=== PATIENT | female | born 1970 | race Caucasian/White ===

== ENCOUNTER → 2017-04-08 | Outpatient (CLI) | payer MEDICAID, OTHER ==
--- NOTE | 2017-04-09 10:53 | MM ---
Reason for exam: screening (asymptomatic). Last mammogram was performed 1 year and 11 months ago. History: Family history of breast cancer in paternal aunt at age 60. Physical Findings: A clinical breast exam by your physician is recommended on an annual basis and results should be correlated with mammographic findings. MG 3D Screening Mammo W/Cad Bilateral CC and MLO view(s) were taken. Prior study comparison: May 15, 2015, bilateral MG screening mammo w CAD. August 31, 2014, right breast MG diagnostic mammo RT w CAD. The breast tissue is heterogeneously dense. This may lower the sensitivity of mammography. There is no discrete abnormality. No significant changes when compared with prior studies. ASSESSMENT: Negative, BI-RAD 1 RECOMMENDATION: Routine screening mammogram of both breasts in 1 year.
== END | disposition home or self-care (01) ==
LOC: RADMAMWWP 07:06
PROVIDERS: ATTEND Family Medicine
DX: Z12.31 Encounter for screening mammogram for malignant neoplasm of breast (principal)
CPT/HCPCS: 77063; G0202

== ENCOUNTER → 2018-08-13 | Outpatient (CLI) | payer MEDICAID ==
--- NOTE | 2018-08-13 15:35 | XR ---
EXAMINATION TYPE: XR Hip Complete LT DATE OF EXAM: 08/13/2018 CLINICAL HISTORY: Chronic left-sided hip pain. TECHNIQUE: AP and frogleg views of the left hip are obtained. COMPARISON: Bilateral hip x-ray February 14, 2014. FINDINGS: There is no acute fracture/dislocation evident in the left hip. There is mild to minimal l eft axial hip joint space loss. No significant spurring is seen. Occasional scattered pelvic phleboli th is redemonstrated. IMPRESSION: As above.
--- NOTE | 2018-08-13 15:36 | XR ---
EXAMINATION TYPE: XR lumbosacral spine min 4V DATE OF EXAM: 08/13/2018 CLINICAL HISTORY: Chronic low back pain. TECHNIQUE: Frontal, lateral, and oblique of the lumbar spine are obtained. COMPARISON: None FINDINGS: There is somewhat hypoplastic right T12 rib. There are 5 lumbar type vertebral bodies iden tified. The lumbar spine shows satisfactory alignment without evidence of acute fracture or dislocat ion. Vertebral body heights and disk space heights are within normal limits. The oblique images harish ear within normal limits. Cholecystectomy clips and overlying soft tissue are noted. IMPRESSION: Fairly unremarkable study.
== END | disposition home or self-care (01) ==
LOC: RADXRYALE 15:14
PROVIDERS: ATTEND Physician Assistant Medical
DX: M25.552 Pain in left hip (principal); M54.5 Low back pain
CPT/HCPCS: 72110; 73502

== ENCOUNTER 2019-09-09 09:24 | Emergency (ER) | payer MEDICAID ==
[2019-09-09 09:30] VITALS: BP 157/80; PULSE 69; RESP 18; TEMP 97.9
[2019-09-09] MEDS ORDERED: methylPREDNISolone SOD SUCCI 125 MG/2 ML VIAL IM ONE (09:48)
[2019-09-09] MEDS ORDERED: KETOROLAC 30 MG/ML 1 ML VIAL IM STA (09:48)
--- NOTE | 2019-09-09 09:57 | ED ---
General Adult HPI - General Chief complaint: Back Pain/Injury Stated complaint: Back pain Time Seen by Provider: 09/09/19 09:31 Source: patient, RN notes reviewed Mode of arrival: ambulatory Limitations: no limitations - History of Present Illness Initial comments: 48-year-old female presents to the emergency department for a chief complaint of "sciatic pain". Patient states she has had problems with sciatica for quite some time. States she has seen Dr. Marr for this in the past. States he wanted to order an MRI about a year ago but she did not want him to. States that about for the past month she has had some right-sided sciatic pain. States she was stretching today and it worsened. States the pain shoots from lumbar spine down to the lateral aspect of the right thigh. States it is painful to move but feels better when she is up and walking. Denies any bladder or bowel changes. Denies saddle anesthesia. Denies fevers or chills. Denies any weakness of the legs.Patient has no other complaints at this time including shortness of breath, chest pain, abdominal pain, nausea or vomiting, headache, or visual changes. - Related Data Previous Rx's Medication Instructions Recorded predniSONE 50 mg PO DAILY #5 tablet 09/09/19 Allergies Allergy/AdvReac Type Severity Reaction Status Date / Time amoxicillin Allergy Rash/Hives Verified 09/09/19 09:30 Review of Systems ROS Statement: Those systems with pertinent positive or pertinent negative responses have been documented in the HPI. ROS Other: All systems not noted in ROS Statement are negative. Past Medical History Past Medical History: No Reported History History of Any Multi-Drug Resistant Organisms: None Reported Past Surgical History: Appendectomy, Hysterectomy Past Psychological History: No Psychological Hx Reported Smoking Status: Never smoker Past Alcohol Use History: None Reported Past Drug Use History: None Reported General Exam Limitations: no limitations General appearance: alert, in no apparent distress Head exam: Present: atraumatic, normocephalic, normal inspection Eye exam: Present: normal appearance, PERRL, EOMI. Absent: scleral icterus, conjunctival injection, periorbital swelling ENT exam: Present: normal exam, mucous membranes moist Neck exam: Present: normal inspection, full ROM. Absent: tenderness, meningismus, lymphadenopathy Respiratory exam: Present: normal lung sounds bilaterally. Absent: respiratory distress, wheezes, rales, rhonchi, stridor Cardiovascular Exam: Present: regular rate, normal rhythm, normal heart sounds. Absent: systolic murmur, diastolic murmur, rubs, gallop, clicks GI/Abdominal exam: Present: soft, normal bowel sounds. Absent: distended, tenderness, guarding, rebound, rigid Extremities exam: Present: other (DP pulse 2+ in the right lower extremity. Sensation intact. Skin exam is normal throughout the right lower extremity including the right foot. Positive straight leg raise test. Strength is 5 out of 5 in bilateral lower extremities.) Course Vital Signs 09/09/19 09:26 Temperature 97.9 F Pulse Rate 69 Respiratory 18 Rate Blood Pressure 157/80 O2 Sat by Pulse 99 Oximetry Medical Decision Making - Medical Decision Making Patient presents for sciatic pain. She does have a history of sciatica and this feels similar however is on a different site than normal. Radiates down to the right thigh. No red flag symptoms. Physical exam does reveal positive straight leg raise test. Neurovascular status intact in the right lower extremity. Patient was ambulatory from the front entrance to ER bed 1 without difficulty. Patient is somewhat frustrated that we cannot do an MRI of the lumbar spine to the emergency room but his understanding that she needs to follow-up with Dr. Marr for this. She was given IM Solu-Medrol and Toradol. I did offer patient stay to ensure that Toradol is efficacious however patient prefers to go home and she does not want any higher dose pain medications. She will be given a starter pack of Tylenol 3 and a prescription of steroids. He will follow up with Dr. Marr for whom she is already established for this. Patient presented more today for MRI but is understanding of this cannot be performed emergently given intact NV status without red flag symptoms. I discussed return parameters including flexing symptoms and she will return for this. Disposition Clinical Impression: Back pain, Radiculopathy Disposition: HOME SELF-CARE Condition: Good Instructions (If sedation given, give patient instructions): Sciatica (ED), Lower Back Exercises (ED) Additional Instructions: Please take steroids as directed starting tomorrow. Take motrin and tylenol for pain. If pain is severe take tylenol 3. Follow-up with primary care in 1-2 days. Follow-up with orthopedics as well. Return for any worsening symptoms including weakness of the lower extremities, numbness or tingling of the saddle area, changes in bladder or bowel, or fevers. Prescriptions: predniSONE 50 mg PO DAILY #5 tablet Is patient prescribed a controlled substance at d/c from ED?: No Referrals: Senthil Paulson DO [Primary Care Provider] - 1-2 days Kinza Marr DO [Doctor of Osteopathic Medicine] - 1-2 days Time of Disposition: 10:21
[2019-09-09] MEDS ORDERED: ACET/COD 300 MG/30 MG STARTER PACK 6 TAB BTL PO STA ×2 (10:23→10:25)
--- NOTE | 2019-09-16 08:34 | CDI ---
Dear Shawn cash , please do addedum for inj IM Toradol and Solu-medrol given or not there is no documentation in medication detail but given mention in MDM part please do the needfull . thank you. <Electronically signed by Shawn Cash MD> [facility]
== END 2019-09-09 10:37 | disposition home or self-care (01) ==
LOC: EC 09:24
DX: M54.10 Radiculopathy, site unspecified (principal); M54.31 Sciatica, right side; Z88.0 Allergy status to penicillin
CPT/HCPCS: 99283

== ENCOUNTER → 2019-10-27 | Outpatient (CLI) | payer MEDICAID ==
[2019-10-27 10:22] VITALS: BP 122/82; PULSE 70; RESP 16
--- NOTE | 2019-10-27 10:47 | P.PAINCN ---
History of Present Illness - Reason for Consult Consult date: 10/27/19 - History of Present Illness This is a 48-year-old patient referred by Dr. Marr with a chief complaint of chronic pain in low back, left hip and left groin. Low back pain began approximately 10 years ago, she sought treatment approximately 5 years ago, she was referred to physical therapy, she has been doing her stretching exercises since then, with no significant benefit. In August 2019, she was feeding the birds and twisted her back, this resulted in excruciating low back pain radiating to right lower extremity and she sought care in an emergency department, where she was diagnosed with acute right sided L5-S1 disc herniation. At that time, she did have pain primarily in the right lower extremity, however this has since subsided. Today, she has 2 sources of painchronic constant low back pain without radiation and acute, sharp, intermittent left hip pain radiating to left groin. The second pain is intermittent, when it occurs it makes it difficult for her to lift her left leg, it is unpredictable in nature. Patient states that her hip and groin pain is worse than her low back pain. Pain is rated as 7-9/10, better with ice heat and medications, unpredictable aggravating factors. She has sought physical therapy and chiropractic therapy, with no significant benefit. She continues to do low back stretching exercises. Patient has been taking medications from primary care physician including ibuprofen 600 mg twice a day when necessary with some relief. Patient denies adverse drug effects from medications. Patient also denies new-onset weakness, bowel/bladder incontinence, or any other signs or symptoms of cauda equina syndrome. There are no signs of acute intoxication, and no indications of medication diversion or overuse. Patient has not had surgery. Patient has not had injections previously. In addition to above, 13-point review of systems is also negative for chest pain, shortness of breath, changes in vision, changes in hearing, new onset weakness, abdominal pain, diarrhea, extreme fatigue, malaise, fever, skin changes, homicidal or suicidal ideation, or bowel or bladder incontinence. Physical exam: Vital Signs: Reviewed in EMR GENERAL: Well appearing, in no acute distress, obese PSYCH: Mood and affect is appropriate. Awake, alert, and oriented SKIN: Skin color, texture, turgor normal, no rashes or lesions HEENT: Normocephalic, atraumatic. EOM intact CV: No pedal edema RESP: Respirations are unlabored, no audible wheezing GI: Abdomen non-distended MUSCULOSKELETAL: Bilateral lower extremity strength is normal and symmetric. No atrophy or tone abnormalities are noted. Lumbar spine: Straight leg raising in the sitting position is negative for radicular pain. Tenderness to palpation over the lumbar spine and paraspinous muscles bilaterally. Positive for pain with facet loading and back extension/rotation. Buttocks: No pain to palpation over the PSIS, Sai test is negative, FADIR test is negative Extremities: Peripheral joint ROM is full and pain free without obvious instability or laxity in all four extremities. No edema or skin discolorations noted. Gait: Gait is normal NEUR: Bilateral lower extremity coordination and muscle stretch reflexes are physiologic and symmetric. Negative clonus. No loss of sensation is noted. Cranial nerves are grossly intact. Imaging: MRI lumbar spine done on 09/22/2019 at [facility] shows right central disc herniation at L5-S1 with abutment of the descending right S1 nerve root. At L3-4 minimal annular bulge with mild bilateral facet arthropathy, degenerative changes have progressed since prior imaging. No spinal canal stenosis. At L4-5 minimal annular disc bulge. Assessment: 1. Lumbar radicular pain 2. Lumbar spondylosis 3. Obesity Plan: 1. Explanation: Diagnoses, prognoses, and multiple treatment options including but not limited to physical therapy, interventional therapies, medication management and surgery were discussed with the patient and all questions were answered to the patient's satisfaction. 2. Investigations: MRI lumbar spine reviewed 3. Counseling: None today 4. Procedures: Will schedule left paramedian L3-4 lumbar epidural steroid injection to address radicular pain. In the future, she may benefit from lumbar medial branch workup 5. Consultations: None 6. Medications: No changes 7. Disposition: For above-mentioned procedure Past Medical History Past Medical History: Asthma, Pneumonia, Skin Disorder, Thyroid Disorder Additional Past Medical History / Comment(s): loose stools, diverticulitis, sciatica, arthritis, herniated disk, eczema, History of Any Multi-Drug Resistant Organisms: None Reported Past Surgical History: Appendectomy, Cholecystectomy, Hysterectomy Past Anesthesia/Blood Transfusion Reactions: No Reported Reaction Smoking Status: Never smoker - Past Family History Mother Family Medical History: No Reported History Medications and Allergies Home Medications Medication Instructions Recorded Confirmed Type Albuterol Sulfate [Proair Hfa] 1 - 2 puff INHALATION DIRECTED 10/21/19 10/27/19 History PRN Cholestyramine (with Sugar) 4 gm PO DAILY 10/21/19 10/27/19 History [Cholestyramine Packet] Ibuprofen 200 mg PO DIRECTED PRN 10/21/19 10/27/19 History Levothyroxine Sodium [Synthroid] 50 mcg PO DAILY 10/21/19 10/27/19 History Allergies Allergy/AdvReac Type Severity Reaction Status Date / Time amoxicillin Allergy Rash/Hives Verified 10/27/19 10:16 PQRS Measure Charge Sheet Measure #130: Documentation of Current Meds in Medical Chart: Patient's medications documented in chart Measure #226: Tobacco Use: Screen & Cessation Intervention: Pt not a tobacco user Measure #111: Pneumonia Vaccination: Pneumococcal vaccine NOT administered or previously given Measure #47: Advance Care Plan: Advance care planning discussed & documented, pt chose/unable to give Measure #412: Opioid Treatment Agreement: No documentation of signed opioid treatment agreement Measure #408: Opioid Therapy Follow-up Evaluation: Patient had NO f/u eval minimum every 3 months during opioid therapy Measure #317: Preventitive Care & Scrn High Bld Press & F/U: Normal blood pressure, f/u not required Measure #128: Body Mass Index (BMI) Screening & Follow-up: BMI documented ABOVE normal parameters - f/u documented Measure #131: Pain Assessment & Follow-up: Pain positive & plan documented, Follow-up scheduled Measure #431: Unhealthy Alcohol Use Preventative Care & Scrn: Patient not identified as an unhealthy alcohol user PQRS Narrative: Smoking Status Never smoker Pain Intensity [Lower Back] 8 Hx Alcohol Use (MH) No Home Medications: Ambulatory Orders Albuterol Sulfate [Proair Hfa] 1 - 2 puff INHALATION DIRECTED PRN 10/21/19 Cholestyramine (with Sugar) [Cholestyramine Packet] 4 gm PO DAILY 10/21/19 Ibuprofen 200 mg PO DIRECTED PRN 10/21/19 Levothyroxine Sodium [Synthroid] 50 mcg PO DAILY 10/21/19
== END | disposition home or self-care (01) ==
LOC: PNWHC3 09:36
PROVIDERS: ATTEND Anesthesiology
DX: G89.29 Other chronic pain (principal); M47.26 Other spondylosis with radiculopathy, lumbar region; E66.9 Obesity, unspecified; Z68.38 Body mass index [BMI] 38.0-38.9, adult; Z79.899 Other long term (current) drug therapy; Z88.0 Allergy status to penicillin
CPT/HCPCS: 99211

== ENCOUNTER → 2019-11-09 | Day surgery (SDC) | payer MEDICAID ==
[2019-11-05 16:22] VITALS: BMI 38.2
[~2019-11-09] MED LIST: IOPAMIDOL M200 10 ML VIAL ONE; LACTATED RINGERS 1,000 ML IV ONE; LACTATED RINGERS 1,000 ML IV SCH; LIDOCAINE 1% (10MG/ML) FOR IV START INTRADERMA ONE; MIDAZOLAM 2 MG/2 ML VIAL ONE; fentaNYL (PF) 50 MCG/ML 2 ML AMP ONE; methylPREDNISolone ACETATE 40 MG/ML 1 ML VIAL ONE
[2019-11-09 07:34] VITALS: RESP 16; TEMP 97.4
[2019-11-09 09:18] VITALS: BP 120/80; PULSE 60
--- NOTE | 2019-11-09 09:24 | P.PCN ---
Date of Procedure: 11/09/19 Procedure(s) Performed: PREOPERATIVE DIAGNOSIS: 1- Lumbar radiculopathy, Lumbar Degenerative Disc Diseases 2-Lumbar spondylosis with Facet arthropathy without myelopathy POSTOPERATIVE DIAGNOSIS: 1-Lumber Degenerative Disc Diseases 2-Lumbar spondylosis with Facet arthropathy without myelopathy PROCEDURE 1. Lumbar epidural steroid injection under fluoroscopic guidance at the L3-4 level using a left paramedian approach 2. Lumbar epidurogram. ANESTHESIA: Local with 1% lidocaine 3 ml, moderate sedation with intravenous Versed and fentanyl, sedation time 9 minutes Fluoroscopy was used for the procedure and images were saved in the radiology portion of the chart. EBL: Minimal PROCEDURE INDICATION: The patient with low back pain and radiculitis symptoms unresponsive to conservative treatment. Fluoroscopy was used to optimize visualization of the needle placement and to maximize safety. PROCEDURE DESCRIPTION / TECHNIQUE: The patient was seen and identified in the preoperative area. Risks, benefits, complications including but not limited to infections ,bleeding ,allergic reaction to the medications ,nerve damage and incomplete pain releif , and alternatives were discussed with the patient. The patient agreed to proceed with the procedure and signed the consent. IV was started, and vital signs were stable. Patient was taken to the OR and time out was completed. The patient was placed in the prone position on procedure table and a pillow was placed under the abdomen to reduce lumbar lordosis. The lumbosacral area was prepped and draped in the usual sterile fashion. Vitals were closely monitored during the procedure. Conscious sedation was used during the procedure to decrease patients anxiety. Using anterior-posterior fluoroscopy, the L3-4 interlaminar space was identified and the skin over this site was marked and then infiltrated with 1% lidocaine subcutaneously. Subsequently, a 18-gauge 5" Tuohy epidural needle was inserted and advanced toward the epidural space using the loss of resistance technique and guided by AP and lateral/ oblique fluoroscopy. The correct needle position in the epidural space was verified with the injection of 2 mL of the water soluble contrast dye Isovue 200 contrast under live fluoroscopy, observing an excellent epidurogram. Then, after negative aspiration for blood and CSF and in the absence of paresthesias, a 5 ml mixture containing 80 mg of Depo-medrol , 3 ml of preservative free Normal Saline, and 1 ml of preservative free lidocaine 1% solution was injected and a washout epidurogram was seen. Needle was withdrawn intact, skin was cleansed, and bandages were applied. COMPLICATIONS: None DISPOSITION / PLANS: The patient was placed in a supine position and transferred to the recovery area in a stable condition for observation. There was no evidence of lower extremity motor or sensory deficit after the procedure. Patient was discharged from the recovery room after meeting discharge criteria. Home discharge instructions were given to the patient by the staff. The patient will schedule a follow up in the clinic in 2-4 weeks.
--- NOTE | 2019-11-09 11:12 | FL ---
Fluoroscopy History: Pain 5 seconds of fluoroscopic time and 2 films are submitted for therapeutic injection.
== END ==
LOC: ORPAIN 07:26
PROVIDERS: ATTEND Anesthesiology
DX: M51.16 Intervertebral disc disorders with radiculopathy, lumbar region (principal); M47.26 Other spondylosis with radiculopathy, lumbar region; Z88.0 Allergy status to penicillin; Z90.710 Acquired absence of both cervix and uterus
CPT/HCPCS: 62323; J2250; J1030; J3010; Q9966

== ENCOUNTER → 2019-12-07 | Outpatient (CLI) | payer MEDICAID ==
--- NOTE | 2019-12-07 08:23 | XR ---
EXAMINATION TYPE: XR Hip Limited LT DATE OF EXAM: 12/07/2019 COMPARISON: NONE HISTORY: Left hip pain TECHNIQUE: 2 view left hip FINDINGS: There is no evidence for fracture or dislocation. Focal calcification noted adjacent to the greater trochanter. Hip joint space is well-preserved. IMPRESSION: No evidence for acute fracture or dislocation.
== END | disposition home or self-care (01) ==
LOC: RADXRMAIN 08:07
PROVIDERS: ATTEND Anesthesiology
DX: M25.552 Pain in left hip (principal)
CPT/HCPCS: 73501

== ENCOUNTER → 2019-12-07 | Day surgery (SDC) | payer MEDICAID ==
[2019-12-03 14:40] VITALS: BMI 38.2
[~2019-12-07] MED LIST changes: -IOPAMIDOL M200 10 ML VIAL ONE; -LACTATED RINGERS 1,000 ML IV ONE; -LIDOCAINE 1% (10MG/ML) FOR IV START INTRADERMA ONE; -MIDAZOLAM 2 MG/2 ML VIAL ONE; -fentaNYL (PF) 50 MCG/ML 2 ML AMP ONE; -methylPREDNISolone ACETATE 40 MG/ML 1 ML VIAL ONE
[2019-12-07 07:47] VITALS: BP 124/83; PULSE 69; RESP 16; TEMP 98
--- NOTE | 2019-12-07 08:40 | P.PAINPG ---
Subjective Progress Note Date: 12/07/19 This is a 49-year-old patient who presents with a chief complaint of chronic pain in low back, left hip and left groin. She was diagnosed with lumbar radicular pain, lumbar spondylosis. She underwent lumbar epidural steroid injection at L3-4 approximately 1 month ago. Unfortunately, she reports she had no benefit from this procedure whatsoever, in fact feels her low back was slightly irritated after the procedure. Pain is primarily located in the low lumbar region. She also has left groin and hip pain. She presented today to undergo repeat lumbar epidural steroid injection, however on evaluation, given that the procedure did not provide her any relief in the past, we elected to cancel the procedure today. Patient denies new-onset weakness, bowel/bladder incontinence, or any other signs or symptoms of cauda equina syndrome. There are no signs of acute intoxication, and no indications of medication diversion or overuse. In addition to above, 13-point review of systems is also negative for chest pain, shortness of breath, changes in vision, changes in hearing, new onset weakness, abdominal pain, diarrhea, extreme fatigue, malaise, fever, skin changes, homicidal or suicidal ideation, or bowel or bladder incontinence. Physical exam: Vital Signs: Reviewed in EMR GENERAL: Well appearing, in no acute distress, obese PSYCH: Mood and affect is appropriate. Awake, alert, and oriented SKIN: Skin color, texture, turgor normal, no rashes or lesions HEENT: Normocephalic, atraumatic. EOM intact CV: No pedal edema RESP: Respirations are unlabored, no audible wheezing GI: Abdomen non-distended MUSCULOSKELETAL: Bilateral lower extremity strength is normal and symmetric. No atrophy or tone abnormalities are noted. Lumbar spine: Tenderness to palpation over the lumbar spine and paraspinous muscles bilaterally. Positive for pain with facet loading and back exten orly/rotation. Buttocks: No pain to palpation over the PSIS, Sai test is negative, Gaenslen's test negative Extremities: Peripheral joint ROM is full and pain free without obvious instability or laxity in all four extremities. No edema or skin discolorations noted. NEUR: Cranial nerves are grossly intact. Imaging: MRI lumbar spine done on 09/22/2019 at [facility] shows right central disc herniation at L5-S1 with abutment of the descending right S1 nerve root. At L3-4 minimal annular bulge with mild bilateral facet arthropathy, degenerative changes have progressed since prior imaging. No spinal canal stenosis. At L4-5 minimal annular disc bulge. Assessment: 1. Lumbar radicular pain 2. Lumbar spondylosis 3. Obesity Plan: 1. Investigations: MRI lumbar spine reviewed, left hip x-ray ordered today 2. Procedures: Will schedule bilateral lumbar medial branch block at L3, L4, L5 for facets L4-5 and L5S1. In the future, she may also benefit from left hip intra-articular steroid injection. 3. Disposition: For above-mentioned procedure Objective - Vital Signs Vital signs: Vital Signs Temp 98.0 F 12/07/19 07:45 Pulse 69 12/07/19 07:45 Resp 16 12/07/19 07:45 BP 124/83 12/07/19 07:45 Pulse Ox 96 12/07/19 07:45 Intake & Output 12/06/19 12/07/19 12/07/19 18:59 06:59 18:59 Weight 107.2 kg PQRS Measure Charge Sheet PQRS Narrative: Smoking Status Never smoker Blood Pressure [Right Arm 124/83 Sitting] Pain Intensity [Left Lower 7 Back] Pain Scale Used [Left Lower Numeric (1 - 10) Back] Hx Alcohol Use (MH) No Home Medications: Ambulatory Orders Albuterol Sulfate [Proair Hfa] 1 - 2 puff INHALATION DIRECTED PRN 10/21/19 Cholestyramine (with Sugar) [Cholestyramine Packet] 4 gm PO DAILY 10/21/19 Ibuprofen 200 mg PO DIRECTED PRN 10/21/19 Levothyroxine Sodium [Synthroid] 50 mcg PO DAILY 10/21/19 Controlled Substance Measures - Controlled Substance Measures Is patient prescribed a controlled substance at discharge?: No
== END ==
LOC: ORPAIN 07:27
PROVIDERS: ATTEND Anesthesiology
DX: M54.5 Low back pain (principal); Z53.8 Procedure and treatment not carried out for other reasons

== ENCOUNTER → 2019-12-27 | Outpatient (CLI) | payer MEDICAID ==
--- NOTE | 2019-12-29 08:41 | MM ---
Reason for exam: screening (asymptomatic). Last mammogram was performed 2 years and 9 months ago. History: Family history of breast cancer in paternal aunt at age 60. Took hormonal contraceptives for 10 years. Physical Findings: A clinical breast exam by your physician is recommended on an annual basis and results should be correlated with mammographic findings. MG 3D Screening Mammo W/Cad Bilateral CC and MLO view(s) were taken. Prior study comparison: April 08, 2017, bilateral MG 3d screening mammo w/cad. May 15, 2015, bilateral MG screening mammo w CAD. The breast tissue is heterogeneously dense. This may lower the sensitivity of mammography. No significant changes when compared with prior studies. ASSESSMENT: Negative, BI-RAD 1 RECOMMENDATION: Routine screening mammogram of both breasts in 1 year.
== END | disposition home or self-care (01) ==
LOC: RADMAMWWP 13:35
PROVIDERS: ATTEND Family Medicine
DX: Z12.31 Encounter for screening mammogram for malignant neoplasm of breast (principal)
CPT/HCPCS: 77063; 77067

== ENCOUNTER 2019-12-28 11:46 | Day surgery (SDC) | payer MEDICAID ==
[2019-12-21 18:14] VITALS: BMI 39.1
[2019-12-28 12:05] VITALS: TEMP 97
[2019-12-28] MEDS ORDERED: LACTATED RINGERS 1,000 ML IV ONE (12:05)
[2019-12-28] MEDS ORDERED: IOPAMIDOL M200 10 ML VIAL ONE (12:31)
[2019-12-28] MEDS ORDERED: LIDOCAINE 1% INJ 10MG/ML (20 ML MDV) ONE (12:31)
[2019-12-28] MEDS ORDERED: ROPIVACAINE 5MG/ML 20ML VIAL ONE (12:31)
[2019-12-28] MEDS ORDERED: MIDAZOLAM 2 MG/2 ML VIAL ONE (12:31)
[2019-12-28 13:03] VITALS: RESP 16
[2019-12-28] MEDS ORDERED: LACTATED RINGERS 1,000 ML IV SCH (13:06)
--- NOTE | 2019-12-28 13:17 | FL ---
EXAMINATION TYPE: FL guided pain mgmt statistic DATE OF EXAM: 12/28/2019 CLINICAL HISTORY: Low back pain. TECHNIQUE: Fluoroscopy. COMPARISON: None. FINDINGS: Fluoroscopic guidance was provided during pain relief procedure performed by Dr. Pacheco . A total of 18 seconds of fluoroscopic time was utilized during the procedure and two spot images are acquired. Images acquired shows needle localization at several levels in the lower lumbar spine. IMPRESSION: As Above.
[2019-12-28 13:20] VITALS: BP 117/67; PULSE 65
[2019-12-28] MEDS ORDERED: IV FLUID CONTINUATION 1,000 ML IV ONE (13:28)
--- NOTE | 2019-12-28 14:38 | P.PCN ---
Date of Procedure: 12/28/19 Description of Procedure: PREOPERATIVE DIAGNOSIS : Lumbar spondylosis with Facet Arthropathy without myelopathy POSTOPERATIVE DIAGNOSIS: same PROCEDURE: Wrist Diagnostic lumbar medial branch block with fluoroscopy at L3, L4, L5 [bilateral] which covers facets L4-5 and L5-S1 ANESTHESIA: Local anesthetic; moderate IV sedation with Versed mg, sedation time 20 minutes Fluoroscopy was used for the procedure and images were saved in the radiology portion of the chart. Surgeon: Chaka Pacheco MD PROCEDURE INDICATION: Lumbar back pain without radiculopathy, not responsive to conservative management. PROCEDURE DESCRIPTION: the patient was seen and identified in the preop holding area , risks and benefits and possible complications of the procedure and alternatives were discussed with the patient, and the patient agreed to proceed with the procedure and signed the consent . IV was started , vital signs were monitored during the procedure and fluoroscopy was used to maximize the benefit and accuracy of the needle placement, and sedation was given to decrease patient anxiety. Patient was taken to the procedure room and placed in prone position. The lumbar region was prepped using chlorhexidineX-2. Under strict sterile technique using AP fluoroscopy the bilateral sacral ala were identified and using ipsilateral oblique fluoroscopy ,the junction of the transverse process and the superior articulating process of the L4, L5 vertebra which corresponds to the fluoroscopy image of the eye of the Alxe dog for the medial branches were identified. Subsequently, after local infiltration of skin with lidocaine 1% 0.2 mL at each level , 25-gauge 3.5" Quincke-type needle was placed at the junction of the base of the transverse process and the superior articular process at the appropriate level as well as the sacral ala, and the needle was advanced until the periosteum contacted, needle placement confirmed with AP and oblique fluoroscopy, 0.2 mL of Isovue 200 per level was injected which revealed no vascular uptake and after negative aspiration, 1 mL ropivacaine 0.5% was injected at each level and the needle subsequently removed . At the end of the procedure and the needles were removed and a bandage applied after the skin was cleaned. The patient was taken to recovery room in stable condition and monitors in the recovery room for 20-30 minutes and discharged home in stable condition after discharge criteria met and patient will follow up for seizure if patient achieves adequate analgesia with this procedure EBL: Minimal COMPLICATION: None.
== END 2019-12-28 13:33 | disposition home or self-care (01) ==
LOC: ORPAIN 11:46
PROVIDERS: ATTEND Anesthesiology
DX: M47.816 Spondylosis without myelopathy or radiculopathy, lumbar region (principal); Z88.0 Allergy status to penicillin; Z90.710 Acquired absence of both cervix and uterus
CPT/HCPCS: 64493; 64494; J2250; J2001; Q9966; J2795; 99152

== ENCOUNTER 2020-01-13 09:42 | Day surgery (SDC) | payer MEDICAID ==
[2020-01-11 14:49] VITALS: BMI 39.2
[2020-01-13 10:57] VITALS: RESP 16; TEMP 98
[2020-01-13] MEDS ORDERED: ROPIVACAINE 5MG/ML 20ML VIAL ONE (11:12)
[2020-01-13] MEDS ORDERED: MIDAZOLAM 2 MG/2 ML VIAL ONE (11:12)
[2020-01-13] MEDS ORDERED: methylPREDNISolone ACETATE 40 MG/ML 1 ML VIAL ONE (11:12)
[2020-01-13] MEDS ORDERED: fentaNYL (PF) 50 MCG/ML 2 ML AMP ONE (11:12)
--- NOTE | 2020-01-13 11:34 | P.PCN ---
Date of Procedure: 01/13/20 Procedure(s) Performed: PREOPERATIVE DIAGNOSIS : 1- Lumbar spondylosis with Facet Arthropathy without myelopathy . 2- Lumber degenerative disc disease POSTOPERATIVE DIAGNOSIS: 1- Lumbar spondylosis with Facet Arthropathy without myelopathy . 2- Lumber degenerative disc disease PROCEDURE: Diagnostic bilateral L3 , L4 , and L5 medial branch block under fluoroscopy guidance(fluoroscopy images available in the radiology Department ) ( To target the facet joint between L4-5 , and L5-S1 ) ANESTHESIA:, moderate sedation with intravenous Versed 2 mg and Fentanyl 50 mcg. EBL: Minimal COMPLICATION: None PROCEDURE INDICATION: Chronic low back pain secondary to Facet arthropathy unresponsive to conservative treatment. PROCEDURE DESCRIPTION: the patient was seen and identified in the preop holding area , risks and benefits and possible complications of the procedure and alternative were discussed with the patient, and the patient agreed to proceed with the procedure and signed the consent and vital signs monitored during the procedure and fluoroscopy was used to maximize the benefit and accuracy of the needle placement, and sedation was given to decrease patient anxiety, patient was taken to the procedure room and placed in prone position vital signs monitored in the back prepped with chlorhexidine X3 then under strict sterile technique using a right oblique fluoroscopy ,the junction of the transverse process and the superior articulating process of the right L3 , L4 , and L5 vertebra which corresponding to the fluoroscopy image of the eye of the Alxe dog on the block side for the medial branches and subsequently , after local infiltration of skin and subcu tissuies with Ropivacaine 0.5 % , one mL at each level ,then 22-gauge Quincke-type needles , 3 needle was used , each one of them placed at the junction of the base of the transverse process and the superior articular process at the appropriate level, and the needle was advanced until the periosteum contacted, needle placement confirmed with AP oblique and lateral view and after appropriate needle placement confirmed, and after negative aspiration for heme and CSF and there was no paresthesia 1-1/2 mL of Ropivacaine 0.5% mixed with 20 mg Depo-Medrol , then half mL injected at each level after negative aspiration the needle subsequently removed and the same procedure repeated for the left side at left side at L3 , L4 and L5 levels. At the end of the procedure and the needles removed and a bandage applied after the skin was cleaned the cleaning solution patient taken to recovery room in stable condition and monitors in the recovery room for 20-30 minutes and discharged home in stable condition after discharge criteria met and patient will follow up with the pain clinic in 2-4 weeks
[2020-01-13] MEDS ORDERED: IV FLUID CONTINUATION 1,000 ML IV ONE (11:35)
[2020-01-13 11:39] VITALS: PULSE 71
[2020-01-13 11:58] VITALS: BP 131/76
--- NOTE | 2020-01-13 14:47 | FL ---
EXAMINATION TYPE: FL guided pain mgmt statistic DATE OF EXAM: 01/13/2020 FLUOROSCOPY Fluoroscopy time of 10 seconds was used during bilateral facet block at 3 levels. 4 image/s document /s the procedure.
== END 2020-01-13 12:07 | disposition home or self-care (01) ==
LOC: ORPAIN 09:42
PROVIDERS: ATTEND Specialist
DX: G89.29 Other chronic pain (principal); M47.816 Spondylosis without myelopathy or radiculopathy, lumbar region; M51.36 Other intervertebral disc degeneration, lumbar region; Z88.0 Allergy status to penicillin; Z90.710 Acquired absence of both cervix and uterus
CPT/HCPCS: 64493; 64494; J2250; J1030; J3010; J2795; 99152

== ENCOUNTER → 2020-02-07 | Outpatient (CLI) | payer MEDICAID ==
[2020-02-07 13:20] VITALS: BP 128/89; PULSE 72; RESP 18; TEMP 97.9
--- NOTE | 2020-02-07 14:06 | P.PAINPG ---
Subjective Progress Note Date: 02/07/20 This is a follow-up visit for this 14-year-old years old female with a chronic history of severe low back pain she states most with lumbar spondylosis with lumbar facet arthropathy, and lumbar degenerative disc disease, status post diagnostic medial branch block lumbar area at L3, L4, L5 x2 , she reported she had significant improvement of her low back pain after each diagnostic block her pain was 8/10 dropped to 2-3/10 after each block, she denies any motor or sensory deficit she denies any fever or night sweats, and she has some left hip pain, is constant Objective - Vital Signs Vital signs: Vital Signs Temp 97.9 F 02/07/20 13:12 Pulse 72 02/07/20 13:12 Resp 18 02/07/20 13:12 BP 128/89 02/07/20 13:12 Pulse Ox 97 02/07/20 13:12 Intake & Output 02/06/20 02/07/20 02/07/20 18:59 06:59 18:59 Weight 104.326 kg - Exam Physical Examinations : -Constitutiona : Cooperative , not in acute distress . -HEENT : nech : supple , no Lymphadenopathy , normal thyroid size . : eyes : no ptosis , no icterus, no photophobia . - neurologic : Cranial nerve II to XII intact , no focal neurological deffecit . -psychatric : alert , oriented X 3 , appropriate affect , intact judgment and insight . -Lymphatic : no Lymphadenopathy . - musculoskeltal : Lumber spine moter stegnth lower extremities ,thigh and legs 5/5 Right side , 5/5 Left side deep tendon reflexes : normal Knee Jerk , normal ankle Jerk lumber facet Loading Test =positive Right , positive Left Range of motion of the lumbar spine Flexion 30 degrees, extension 10 degrees strait leg raising test = positive at 45 degree Fabere test= positive Right , and positive LT . hip Joint range of motion bilaterally Assessment and Plan Plan: Assessment and plan=1-lumbar spondylosis with lumbar facet arthropathy without myelopathy 2-lumbar degenerative disc disease. Patient had more than 70% improvement of her low back pain after each diagnostic medial branch block She will be good candidate to have RFA of the medial branch lumbar area at L3, L4, L5, bilaterally, In the future if she continued to have left hip pain after the RFA of the medial branch and then we will consider ordering an x- ray of the left hip Time with Patient: Less than 30 PQRS Measure Charge Sheet Measure #130: Documentation of Current Meds in Medical Chart: Patient's medications documented in chart Measure #226: Tobacco Use: Screen & Cessation Intervention: Pt not a tobacco user Measure #111: Pneumonia Vaccination: Pneumococcal vaccine NOT administered or previously given Measure #47: Advance Care Plan: Advance care planning discussed & documented, pt chose/unable to give Measure #412: Opioid Treatment Agreement: No documentation of signed opioid treatment agreement Measure #408: Opioid Therapy Follow-up Evaluation: Patient had NO f/u eval minimum every 3 months during opioid therapy Measure #317: Preventitive Care & Scrn High Bld Press & F/U: Normal blood pressure, f/u not required Measure #128: Body Mass Index (BMI) Screening & Follow-up: BMI documented ABOVE normal parameters - f/u documented Measure #131: Pain Assessment & Follow-up: Pain positive & plan documented, Follow-up scheduled Measure #431: Unhealthy Alcohol Use Preventative Care & Scrn: Patient not identified as an unhealthy alcohol user PQRS Narrative: Smoking Status Never smoker Blood Pressure 128/89 Pain Intensity [Lower Back] 7 Scale Used Numeric (1 - 10) Hx Alcohol Use (MH) No Home Medications: Ambulatory Orders Albuterol Sulfate [Proair Hfa] 1 - 2 puff INHALATION DIRECTED PRN 10/21/19 Cholestyramine (with Sugar) [Cholestyramine Packet] 4 gm PO DAILY 10/21/19 Ibuprofen 200 mg PO Q6H PRN 10/21/19 Levothyroxine Sodium [Synthroid] 50 mcg PO DAILY 10/21/19 Controlled Substance Measures - Controlled Substance Measures Is patient prescribed a controlled substance at discharge?: No
== END | disposition home or self-care (01) ==
LOC: PNWHC3 13:05
PROVIDERS: ATTEND Specialist
DX: G89.29 Other chronic pain (principal); M51.36 Other intervertebral disc degeneration, lumbar region; M47.816 Spondylosis without myelopathy or radiculopathy, lumbar region; Z79.899 Other long term (current) drug therapy
CPT/HCPCS: 99211

== ENCOUNTER 2020-02-29 08:31 | Day surgery (SDC) | payer MEDICAID ==
[2020-02-25 14:26] VITALS: BMI 38.2
[2020-02-29] MEDS ORDERED: LACTATED RINGERS 1,000 ML IV ONE (08:43)
[2020-02-29 08:44] VITALS: TEMP 98
[2020-02-29] MEDS ORDERED: LIDOCAINE 1% (10MG/ML) FOR IV START INTRADERMA ONE (08:44)
[2020-02-29] MEDS ORDERED: methylPREDNISolone ACETATE 40 MG/ML 1 ML VIAL ONE (09:06)
[2020-02-29] MEDS ORDERED: MIDAZOLAM 2 MG/2 ML VIAL ONE (09:06)
[2020-02-29] MEDS ORDERED: ROPIVACAINE 5MG/ML 20ML VIAL ONE (09:06)
[2020-02-29] MEDS ORDERED: fentaNYL (PF) 50 MCG/ML 2 ML AMP ONE (09:06)
--- NOTE | 2020-02-29 09:32 | P.PCN ---
Date of Procedure: 02/29/20 Procedure(s) Performed: PREOPERATIVE DIAGNOSIS: 1-Lumbar Spondylosis with Facet Arthropathy without myelopathy. 2- Lumber degenerative disc disease POSTOPERATIVE DIAGNOSIS: 1- Lumbar Spondylosis with Facet Arthropathy without myelopathy. 2- Lumber degenerative disc disease PROCEDURES : Bilateral Radiofrequency thermocoagulation, L3 , L4 , and L5 medial branch, with fluoroscopic guidance (fluoroscopy images available in the radiology department) ( to denervate the facet joint at L4-5 ,and L5-S1 levels ) ANESTHESIA: Moderate sedation with intravenous versed 2 mg and fentaneyl 100 mcg, and local infiltration with Ropivacaine 0.5 % . EBL: Minimal PROCEDURE INDICATION: The patient with low back pain secondary to lumbar facet arthropathy who had more than 50% relief of her pain with previous diagnostic lumbar medial branch block with bupivacaine. PROCEDURE DESCRIPTION / TECHNIQUE: The patient was seen and identified in the preoperative area. Risks, benefits, complications, including but not limited to risk of infection ,bleeding , allergic reactions to the medications and no complete pain releife , and alternatives were discussed with the patient, the patient agreed to proceed with the procedure and signed the consent. IV was started. Vital signs remained stable throughout the procedure. Patient was taken to the OR and time out was completed. The patient was placed in the prone position on the procedure table. The lumber area was prepped and draped in the usual sterile fashion. . Vital signs were closely monitored during the procedure .IV sedation was used during the procedure to decrease patients anxiety. Using AP and then oblique fluoroscopy, the ``eye of the Alex dog corresponding to the connection between the superior and transverse articular processes of right L3, L4, and L5 were identified, marked, and localized with 1% lidocaine. Subsequently, a 18 mmrye720-br radiofrequency cannula with a 10- mm active tip was advanced guided by fluoroscopy to each of the``eyes of the Alex dog at right L3, L4, and L5. Each site then underwent sensory testing at 50 Hz and 0 to 1 volt and motor testing at 2.5 Hz and 0 to 3 volt with local stimulation, but no radicular symptoms down the legs. Thereafter each sites underwent radiofrequency thermocoagulation at 80 degrees celsius for 90 seconds after injecting 0.5 ml of PF Ropivacaine 1ml, then after the thermocoagulation done , 1 ml of the block solution containing Depo-Medrol 20 mg and 3 ml of Ropivacaine 0.5% was injected at the right L3 , L4 , and L5 , levels after negative aspiration of CSF and blood and with no paresthesias. Cannulas were retracted while injecting lidocaine 1% until the needle is out. The same procedure was repeated at the level of Left L3, L4, and L5 levels. At the end of the procedure, the skin was cleansed and bandages were applied. COMPLICATIONS: No acute complications. DISPOSITION / PLANS: The patient was placed in a supine position and transferred to the recovery area in a stable condition for observation and was discharged from the recovery room after meeting discharge criteria. Home discharge instructions given to the patient by the staff. The patient was reexamined prior to discharge. The patient will schedule a follow up in the clinic in 2-4 weeks.
[2020-02-29] MEDS ORDERED: IV FLUID CONTINUATION 450 ML IV ONE (09:36)
[2020-02-29 09:43] VITALS: PULSE 72
[2020-02-29 09:57] VITALS: BP 101/74; RESP 20
--- NOTE | 2020-02-29 10:09 | FL ---
EXAMINATION TYPE: FL guided pain mgmt statistic DATE OF EXAM: 02/29/2020 FLUOROSCOPY Fluoroscopy time of 15 seconds was used during bilateral lumbar radiofrequency ablation. 6 image/s d ocument/s the procedure.
== END 2020-02-29 10:05 | disposition home or self-care (01) ==
LOC: ORPAIN 08:31
PROVIDERS: ATTEND Specialist
DX: M47.816 Spondylosis without myelopathy or radiculopathy, lumbar region (principal); M51.36 Other intervertebral disc degeneration, lumbar region; Z88.0 Allergy status to penicillin; Z90.710 Acquired absence of both cervix and uterus
CPT/HCPCS: 64635; 64636; J2250; J3010; J1030; J2795; 99152

== ENCOUNTER → 2021-04-14 | Outpatient (CLI) | payer MEDICAID, OTHER | END | disposition home or self-care (01) | LOC: LABWHC1 13:59 | PROVIDERS: ATTEND Emergency Medicine | DX: Z20.822 Contact with and (suspected) exposure to COVID-19 (principal) | CPT/HCPCS: 87635 ==

== ENCOUNTER → 2021-04-15 | Outpatient (CLI) | payer MEDICAID, OTHER | END | disposition home or self-care (01) | LOC: LABWHC1 14:48 | PROVIDERS: ATTEND Emergency Medicine | DX: Z20.822 Contact with and (suspected) exposure to COVID-19 (principal) | CPT/HCPCS: 87635 ==

== ENCOUNTER → 2021-05-03 | Outpatient (CLI) | payer MEDICAID ==
--- NOTE | 2021-05-07 13:50 | MM ---
Reason for exam: screening (asymptomatic). Last mammogram was performed 1 year and 4 months ago. History: Family history of breast cancer in paternal aunt at age 60. Took hormonal contraceptives for 10 years. Physical Findings: A clinical breast exam by your physician is recommended on an annual basis and results should be correlated with mammographic findings. MG 3D Screening Mammo W/Cad Bilateral CC and MLO view(s) were taken. Prior study comparison: December 27, 2019, bilateral MG 3d screening mammo w/cad. April 08, 2017, bilateral MG 3d screening mammo w/cad. There are scattered fibroglandular densities. Finding #1: There are two adjacent, obscured round masses measuring 8mm and 6mm located 6 cm from the nipple in the upper outer quadrant, middle position of the left breast. Finding #2: There are typically benign round calcifications in both breasts. There is a chronic nodularity in the left breast. New finding since December 27, 2019 and April 08, 2017. ASSESSMENT: Incomplete: need additional imaging evaluation, BI-RAD 0 RECOMMENDATION: Ultrasound of the left breast. [facility] will attempt to contact patient to return for ultrasound.
== END | disposition home or self-care (01) ==
LOC: RADMAMWWP 13:54
PROVIDERS: ATTEND Family Medicine
DX: Z12.31 Encounter for screening mammogram for malignant neoplasm of breast (principal); Z80.3 Family history of malignant neoplasm of breast
CPT/HCPCS: 77063; 77067

== ENCOUNTER → 2022-02-11 | Outpatient (CLI) | payer MEDICAID ==
--- NOTE | 2022-02-11 12:54 | XR ---
EXAMINATION TYPE: XR lumbosacral spine min 4V DATE OF EXAM: 02/11/2022 12:06 PM INDICATION: Patient age:Female; 51 years old; Reason for study: [id number] LBP; [facility]. COMPARISON: Spine at 08/13/2018 TECHNIQUE: Frontal, lateral , bilateral oblique and coned in L5-S1 lateral views of the spine. FINDINGS: No evidence of any acute osseous pathology. No evidence of loss of vertebral body height i s seen. There is straightening of the alignment of the lumbar vertebral bodies. Mild scattered disc s pace narrowing. Multilevel marginal osteophyte formation throughout the visualized spine. There is fa cet joint arthropathy throughout the spine. Scattered at least mild neural foraminal stenosis. Right upper quadrant cholecystectomy clips. IMPRESSION: 1. No acute fracture. 2. Mild multilevel disc degeneration.
== END | disposition home or self-care (01) ==
LOC: RADXRYALE 11:54
PROVIDERS: ATTEND Physician Assistant Medical
DX: M51.37 Other intervertebral disc degeneration, lumbosacral region (principal)
CPT/HCPCS: 72110

== ENCOUNTER → 2022-11-05 | Outpatient (CLI) | payer MEDICAID ==
--- NOTE | 2022-11-06 08:41 | MM ---
Reason for Exam: Screening (asymptomatic). Last mammogram was performed 1 year(s) and 6 month(s) ago. Patient History: Menarche at age 13. First Full-Term at age 27. Hysterectomy at age 33. Patient used Hormonal Contraceptives for 10 years. Paternal aunt had breast cancer, age 60. Risk Values: Sharyn 5 year model risk: 1.2%. NCI Lifetime model risk: 9.6%. Prior Study Comparison: 04/08/2017 Bilateral Screening Mammogram, [facility]. 12/27/2019 Bilateral Screening Mammogram, [facility]. 05/03/2021 Bilateral Screening Mammogram, [facility]. Tissue Density: There are scattered fibroglandular densities. Findings: Analyzed By CAD. There is no suspicious group of microcalcifications within either breast. No new suspicious mass within the right breast. Chronic nodularity within the right breast. Region of nodular focal asymmetries within the anterior aspect centrally of the left breast. Overall Assessment: Incomplete: need additional imaging evaluation, BI-RAD 0 Management: Diagnostic Mammogram of the left breast. A clinical breast exam by your physician is recommended on an annual basis and results should be correlated with mammographic findings. [facility] will attempt to contact patient to return for supplemental views and ultrasound if indicated. Note on Sharyn scores and lifetime risk: 1. A Sharyn score greater than 3% is considered moderate risk. If this is the case, consider specialist referral to assess eligibility for a risk reducing agent. If overall lifetime risk for the development of breast cancer is 20% or higher, the patient may qualify for future screening with alternating mammogram and breast MRI. Electronically signed and approved by: Soto Monroy D.O.
== END | disposition home or self-care (01) ==
LOC: RADMAMWWP 13:08
PROVIDERS: ATTEND Family Medicine
DX: Z12.31 Encounter for screening mammogram for malignant neoplasm of breast (principal); Z80.3 Family history of malignant neoplasm of breast
CPT/HCPCS: 77063; 77067

== ENCOUNTER → 2022-11-18 | Outpatient (CLI) | payer MEDICAID ==
--- NOTE | 2022-11-18 14:04 | MM ---
Reason for Exam: Additional evaluation requested from abnormal screening. Last screening mammogram was performed less than 1 month ago. Patient History: Menarche at age 13. First Full-Term at age 27. Hysterectomy at age 33. Postmenopausal. Patient used Hormonal Contraceptives for 10 years. Paternal aunt had breast cancer, age 60. Risk Values: Sharyn 5 year model risk: 1.2%. NCI Lifetime model risk: 9.6%. Prior Study Comparison: 12/27/2019 Bilateral Screening Mammogram, [facility]. 05/03/2021 Bilateral Screening Mammogram, [facility]. 11/05/2022 Bilateral MG 3D screening mammo w/cad, [facility]. Tissue Density: Left: The breast tissue is heterogeneously dense. This may lower the sensitivity of mammography. Findings: Analyzed By CAD. Noted 2 cm from the nipple there is a 6.6 mm well-circumscribed mass at the approximate 12:00 position. Ultrasound is recommended. Overall Assessment: Incomplete: need additional imaging evaluation, BI-RAD 0 Management: Diagnostic Breast Ultrasound of the left breast. . Results were given to the patient verbally at the time of exam. Patient should continue monthly self-breast exams. A clinical breast exam by your physician is recommended on an annual basis. This exam should not preclude additional follow-up of suspicious palpable abnormalities. Note on Sharyn scores and lifetime risk: 1. A Sharyn score greater than 3% is considered moderate risk. If this is the case, consider specialist referral to assess eligibility for a risk reducing agent. 2. If overall lifetime risk for the development of breast cancer is 20% or higher, the patient may qualify for future screening with alternating mammogram and breast MRI. Electronically signed and approved by: Jason Tucker M.D. Radiologis
--- NOTE | 2022-11-18 14:53 | USB ---
Reason for Exam: Additional evaluation requested from abnormal screening. Patient History: Menarche at age 13. First Full-Term at age 27. Hysterectomy at age 33. Postmenopausal. Patient used Hormonal Contraceptives for 10 years. Paternal aunt had breast cancer, age 60. Risk Values: Sharyn 5 year model risk: 1.2%. NCI Lifetime model risk: 9.6%. Technique: Method: Targeted. Prior Study Comparison: 12/27/2019 Bilateral Screening Mammogram, [facility]. 05/03/2021 Bilateral Screening Mammogram, [facility]. 11/05/2022 Bilateral MG 3D screening mammo w/cad, [facility]. Findings: The upper section of the breast of the left breast and the retroareolar of the left breast were scanned. The left 12:00 position is a simple appearing cystic lesion 2 cm from the nipple measuring 9 x 4 mm. No solid masses identified. Overall Assessment: Benign, BI-RAD 2 Management: Screening Mammogram of both breasts in 1 year. A clinical breast exam by your physician is recommended on an annual basis and results should be correlated with mammographic findings. This exam should not preclude additional follow-up of suspicious palpable abnormalities. Results were given to the patient verbally at the time of exam. Electronically signed and approved by: Jason Tucker M.D. Radiologis
== END | disposition home or self-care (01) ==
LOC: RADMAMWWP 13:31
PROVIDERS: ATTEND Family Medicine
DX: R92.8 Other abnormal and inconclusive findings on diagnostic imaging of breast (principal); Z78.0 Asymptomatic menopausal state; Z80.3 Family history of malignant neoplasm of breast
CPT/HCPCS: 77061; 77065

== ENCOUNTER 2022-12-13 13:41 | Day surgery (SDC) | payer MEDICAID ==
[2022-12-09 10:29] VITALS: BMI 35.8
[~2022-12-13 13:41] MED LIST changes: +LIDOCAINE 1% (10MG/ML) FOR IV START INTRADERMA PRN; +ONDANSETRON 4 MG/2 ML VIAL IVP PRN
[2022-12-13 14:56] VITALS: RESP 16; TEMP 97.5
[2022-12-13] MEDS ORDERED: PROPOFOL 10 MG/ML 20 ML VIAL IV ONE (15:00)
--- NOTE | 2022-12-13 15:22 | P.PCN ---
Date of Procedure: 12/13/22 Procedure(s) Performed: BRIEF HISTORY: Patient is a 52-year-old pleasant white white female scheduled for an elective colonoscopy as a part of screening for colon cancer. PROCEDURE PERFORMED: Colonoscopy. PREOPERATIVE DIAGNOSIS: Screening for colon cancer. IV sedation per Anesthesia. PROCEDURE: After informed consent was obtained, the patient, was brought into the endoscopy unit. IV sedation was administered by Anesthesia under continuous monitoring. Digital rectal examination was normal. Initially the Olympus CF-160 flexible video colonoscope was then inserted in the rectum, gradually advanced into the cecum without any difficulty. Careful examination was performed as the scope was gradually being withdrawn. Ileocecal valve and the appendiceal orifice were visualized and appeared normal. Prep was excellent. Mucosa of the cecum, ascending colon, transverse colon, descending colon, sigmoid colon, and rectum appeared normal. Scattered sigmoid diverticula cyst. Retroflexion was performed in the rectum and no lesions were seen. The patient tolerated the procedure well. IMPRESSION: Normal-appearing colon from rectum to cecum no evidence of colorectal neoplasia. Scattered sigmoidal diagnosis. RECOMMENDATIONS: Findings of this examination were discussed with the patient as well as a family. She was advised to have a repeat screening colonoscopy in 10 years..
[2022-12-13 15:50] VITALS: BP 120/81; PULSE 74
== END 2022-12-13 16:03 | disposition home or self-care (01) ==
LOC: ORWHC2ENDO 13:41
PROVIDERS: ATTEND Internal Medicine Gastroenterology
DX: Z12.11 Encounter for screening for malignant neoplasm of colon (principal); K57.30 Diverticulosis of large intestine without perforation or abscess without bleeding; I25.10 Atherosclerotic heart disease of native coronary artery without angina pectoris; J45.909 Unspecified asthma, uncomplicated; E03.9 Hypothyroidism, unspecified; Z79.899 Other long term (current) drug therapy; Z79.890 Hormone replacement therapy
CPT/HCPCS: 45378; J2704

== ENCOUNTER → 2023-07-16 | Outpatient (CLI) | payer MEDICAID ==
--- NOTE | 2023-07-20 16:16 | MR ---
EXAMINATION TYPE: MR lumbar spine wo con DATE OF EXAM: 07/16/2023 COMPARISON: 11/30/2014 HISTORY: 52-year-old female low back pain into the left leg, M62.81 MUSCLE WEAKNESS (GENERALIZED) TECHNIQUE: Multiplanar, multisequence images of the lumbar spine were acquired without IV contrast. FINDINGS: Low marrow signal intensity with some heterogeneity suggesting prominent red marrow hyperplasia, unch anged from prior. There is mild degenerative disc disease throughout with a perirenal mild intervertebral disc desiccat ion and mild disc bulging which has progressed. There is facet arthropathy mid to lower lumbar spine which has progressed particularly at L3-L4 with small joint effusions are present. There is also some thickening of the ligamentum flavum here with a new 7 mm cyst either arising from the right facet joint or the ligamentum flavum projecting towards the right lateral recess and abutting the cauda equina nerve roots, axial image 12 and sagittal image 10. Conus medullaris is normal. No large focal disc herniation or significant spinal canal stenosis. On the left, no significant neural foraminal stenosis. On the right, no significant neural foraminal stenosis. No prevertebral or paravertebral soft tissue abnormality. IMPRESSION: 1. Some early intervertebral disc desiccation and mild disc bulging. Changes have progressed from 201 5. However, no focal disc herniation or significant spinal canal stenosis. 2. Facet arthropathy has progressed in the mid and lower lumbar spine especially L3-L4 where moderate joint effusions are also present. 3. Either a 7 mm right-sided synovial cyst of the L3-L4 facet joint or of the mildly thickened ligame ntum flavum. This projects anteriorly towards the spinal canal into the right lateral recess abutting the cauda equina nerve roots here. 4. No significant neural foraminal stenosis.
== END | disposition home or self-care (01) ==
LOC: RADMRIMAIN 11:07
PROVIDERS: ATTEND Orthopaedic Surgery
DX: M47.816 Spondylosis without myelopathy or radiculopathy, lumbar region (principal); M51.26 Other intervertebral disc displacement, lumbar region; M71.38 Other bursal cyst, other site; M25.48 Effusion, other site; M62.81 Muscle weakness (generalized)
CPT/HCPCS: 72148

== ENCOUNTER → 2023-08-20 | Outpatient (CLI) | payer MEDICAID | END | disposition home or self-care (01) | LOC: LABPAT 14:31 | PROVIDERS: ATTEND Orthopaedic Surgery | DX: Z01.812 Encounter for preprocedural laboratory examination (principal); M43.16 Spondylolisthesis, lumbar region; M48.061 Spinal stenosis, lumbar region without neurogenic claudication; M47.26 Other spondylosis with radiculopathy, lumbar region | CPT/HCPCS: 86850; 86900; 86901; 87070 ==

== ENCOUNTER 2023-08-26 07:30 | Inpatient (IN) | payer MEDICAID ==
[2023-08-21 10:51] VITALS: BMI 38.7
--- NOTE | 2023-08-26 06:55 | P.HPOR ---
History of Present Illness H&P Date: 08/20/23 .D:Date: 08/20/23 : 01:54pm .T:Title: [facility] [place] HISTORY AND PHYSICAL Age: 52 year Height: 5'5" Weight: 235 lbs BMI: 39.11 kg/m2 Occupation: Graphic Editor @ [employer] VAS: 6 IMPRESSION: It was my pleasure to have seen and examined Brittany. I reviewed the patient's clinical syndrome, physical findings, and imaging studies during the appointment today. It is my impression that the patient has a diagnosis of. 1. Grade I spondylolisthesis of L3 on L4, unstable 2. Right-sided facet cyst 3. Low back pain Spine Surgery Risk Review Ms. Dee is presenting for evaluation of low back and bilateral lower extrem ity pain, bilateral lower extremity numbness and tingling. It was my pleasure to have seen and examined Ms. Dee. In our visit today we have had a chance to go over subjective complaints, physical examination findings and treatments including the natural course history without intervention and various interventional options. The patients imaging demonstrates: MRI of the lumbar spine completed at [facility] on 07/23/2023: Images reviewed with pt. large right-sided facet cyst at L3-L4 causing mass effect on the thecal sac which causes central stenosis which is moderate to severe. This also encroaches on the foramen at this level causing moderate foraminal stenosis on the right- hand side. There are very boggy and fluid-filled facets at the L3-L4 level as well. Suggesting instability.no acute fracture or lesion noted XRAY Date: 07/09/2023 Location: [facility] Region: Lumbar Views: MV (AP, Lateral, Flexion, & Extension with AP pelvis) - Re-reviewed with the patient today Images reviewed with pt. L5-S1 spondylosis with spondylolysis. No significant listhesis. DDD noted with disc collapse and facet arthrosis. L4-5 spondylosis with stenosis foraminally that is mild. No fracture or lesions noted. L3-4 Grade I spondylolisthesis that is mobile on F/E films b/l foraminal stenosis, moderate, bony, need MRI to visualize more as well as central stenosis suspected based on exam. AP pelvis shows congruent level pelvis w/o fracture. On physical exam, Ms. Dee demonstrates: A continued ache-like, tightness throughout the low back that radiates down into the left hip and posterior aspect of the bilateral thigh. The patient reports that her bilateral lower extremity pain is associated with numbness and tingling. She states her symptoms worsen after prolonged walking or standing. The patient states that her low back pain is minimal when sitting. The patient states her symptoms have been worsening over the last 2 to 3 months. She reports experiencing mild sleep disturbances related to her ongoing pain and associated symptoms. I have explained to the patient that as their condition progresses it will cause further neurological deficits and eventual paralysis. Based on the patients imaging, physical exam, and the rapid progression and disabling nature of their symptoms, at this time I recommend surgery in the form of a: Stage I: L3-4 lateral decompression and fusion Stage II: L3-4 posterolateral stabilization and fusion. I discussed the risk and benefits of this procedure at length with Ms. Dee. The patient agreed to considered pursuing the procedure above mentioned. Prior to surgery, she should follow up with her PCP (Cardio, ID, IM etc) for clearance. Questions were invited and answered, and the patient wishes to proceed as outlined below. Currently, I am recommendin.Stage I: L3-4 lateral decompression and fusion Stage II: L3-4 posterolateral stabilization and fusion 2.Review of surgical risks and benefits as well as an educational packet on the proposed surgical procedure. Risks: All surgical procedures come with inherent risks, including those related to positioning, anesthesia, intraoperative findings, and postoperative complications. It is important to understand that surgery does not come with any guarantee of a successful outcome as complications and adverse events are always possible. The patient was given a handout in office today discussing the surgical procedure and risks associated with the intervention, both of which were discussed with the patient. These risks include but are not limited to the following: * Experiencing same, different or even worse symptoms in back, neck, arms, or legs compared to before surgery. Requiring further surgery or other forms of treatment presently or at some time in the future at same or other levels of the intended spine surgery. On an extreme but fortunately relatively rare basis severe complication such as blindness, stroke, heart attack, temporary and/or permanent nerve injury, pa ralysis, coma, or may occur, sometimes without known explanation. Surgical complications may include but are not limited to risk of infection, fluid accumulation in the surgical dissection site, including a seroma or hematoma, that requires additional surgery, wound drainage, bleeding, new numbness or weakness, vision changes/loss, spinal fluid leakage, non-healing and/or infected incision, headaches, difficulty or inability to swallow, hoarseness, hemopneumothorax, pneumothorax, impotence, retrograde ejaculation, vaginal dryness; injury to nerves, spinal cord, blood vessels, lymphatics or other vital organs (i.e., bowel injury, injury to the great vessels); heterotopic bone formation; complications related to the hardware such as screws, rods, cages including misplaced hardware, device failure, instrumentation at the wrong spine level, hardware fracture/breakage, or hardware loosening; vertebral failure of the spinal column above or below the newly placed hardware; retained surgical instrumentations or devices and the need for further surgery. * Medical risks of the planned spine surgery include but are not limited to generalized Infections to the whole body or local areas outside of the surgical site (sepsis), heart attack, bleeding, anaphylaxis, meningitis, seizure, epilepsy, hearing loss, burn saldana, laceration of the head or other areas of the body, bruising, hypersensitivity of the skin, bladder over distension; allergic reaction; shoulder injury related to positioning; fat, blood and air clots to other areas of the body like heart, lungs, brain; failure of internal organs such as lungs, kidneys, liver and excessive bleeding. If blood transfusions are necessary, note that transfusions may cause intolerance reactions such as anaphylaxis or other complex reactions. Despite best efforts, the results of spine surgery might not heal in terms of bone, soft tissues such as skin, fascia, ligaments, and joints. Additionally, in order to achieve best possible results, spine surgery may be carried out beyond the initially planned levels and involve decompression, fusion including insertion of hardware at levels other than the original intended area of arsen gical interest change some portions of the procedure in order to ensure the best possible outcomes. With spine surgery and spinal fusion, there are different off label uses of instrumentation (devices, implants and hardware) as well as biological substances (bone morphogenic proteins, demineralized bone matrix) as well as using extra bone from allograft sources (i.e. cadaver bone) or autograft (iliac crest bone, ribs, or the spine itself). The patient has been given information about these practices and their inherent risks and benefits. [facility] is an educational center that serves as a training facility for neurosurgical and orthopedic [employer] and Nursing students. Physician assistants are medically trained surgical providers who function in the outpatient, inpatient, and operating room setting under the direct supervision of the attending surgeon. [facility] has multiple operating rooms with single and overlapping rooms running daily. They currently function under the required guidelines as produced by the [facility] Finance Committee with regards to the overlapping rooms and will continue to comply with changes to this policy as they occur. The requirements include and are complied with as follows: (1) the critical portions of the overlapping rooms will not occur at the same time, (2) the attending physician will be physically present during the critical portions of the procedure and immediately available during the entire case, and (3) a back-up attending is designated should the primary attending not be immediately available. The patient has had a chance to review all the listed information, has been given print outs detailing this information, and has had all his/her questions answered to their satisfaction. It was my pleasure to have seen and examined Ms. Dee. In our visit today we have had a chance to go over my understanding of our patient's current condition, the natural course history without intervention and various interventional options. Questions were invited and answered, and the patient wishes to proceed as outlined above. I have seen and examined the patient for 25 minutes and we have spent more than 50% of the time in repeat and detailed counseling about the patient's condition, its natural course history with out and as much as can be predicted with surgery and re-review of various surgical treatment options. In conclusion, Ms. Dee requested we proceed with the above suggested surgery and are willing to accept risks and limitations of the suggested surgery as nature of the disease process and our best attempts at treatment for the condition. Thank you again for allowing us to be part of your patient's care. Please don't hesitate to contact me if you have any further questions. FOLLOW UP: Post Operation PATIENT EDUCATION: Medications Reviewed: YES In our visit today Ms. Dee and I have had a chance to go over my understanding of the patient's current condition, the natural course history without intervention and various interventional options. Questions were invited and answered, and the patient wishes to proceed as outlined above. I will be sure to keep you updated after Ms. Dee returns here for further follow-up. Thank you again for your referral. Please do not hesitate to contact me if you have any further questions. Signed and authenticated by: Jordan Ramesh [facility] [address] [place] [place] [address] This message is confidential, intended only for the named recipient(s) and may contain information that is privileged or exempt from disclosure under applicable law. If you are not the intended recipient(s), you are notified that the dissemination, distribution or copying of this information is strictly prohibited. If you received this message in error, please notify the sender then delete this message. # SIGNED BY Jordan Perez (GOO)08/24/2023 01:33PM Past Medical History Past Medical History: Asthma, Musculoskeletal Disorder, Osteoarthritis (OA), Pneumonia, Skin Disorder, Thyroid Disorder Additional Past Medical History / Comment(s): Diverticulitis, sciatica, herniate d disc, eczema. History of Any Multi-Drug Resistant Organisms: None Reported Past Surgical History: Appendectomy, Cholecystectomy, Hysterectomy Additional Past Surgical History / Comment(s): PAIN CLINIC PROCEDURES. Past Anesthesia/Blood Transfusion Reactions: No Reported Reaction Smoking Status: Never smoker - Past Family History Mother Family Medical History: No Reported History Medications and Allergies Home Medications Medication Instructions Recorded Confirmed Type Cholestyramine (with Sugar) 4 gm PO QAM 10/21/19 08/21/23 History [Cholestyramine Packet] Levothyroxine Sodium [Synthroid] 50 mcg PO QAM 10/21/19 08/21/23 History Escitalopram [Lexapro] 10 mg PO QAM 08/21/23 08/21/23 History Allergies Allergy/AdvReac Type Severity Reaction Status Date / Time amoxicillin Allergy Rash/Hives Verified 08/21/23 10:22 Physical Examination Osteopathic Statement: *. No significant issues noted on an osteopathic structural exam other than those noted in the History and Physical/Consult.
[~2023-08-26 07:30] MED LIST changes: -LACTATED RINGERS 1,000 ML IV SCH; +MIDAZOLAM 2 MG/2 ML VIAL IV PRN; -ONDANSETRON 4 MG/2 ML VIAL IVP PRN; +TRANEXAMIC 1,000 MG/100ML-NACL 1,000 MG in SALINE 1 100ML.BAG IVPB PRN
[2023-08-26] MEDS: LACTATED RINGERS 1,000 ML IV SCH (08:55)
[2023-08-26] MEDS: GABAPENTIN 300 MG CAP PO PRN (09:06)
[2023-08-26] MEDS: ACETAMINOPHEN TAB 500 MG TAB PO PRN (09:06)
[2023-08-26 09:26] LABS: Glucose,Whole Blood 84 mg/dL (70-110)
[2023-08-26] MEDS: ONDANSETRON 4 MG/2 ML VIAL IVP ONE (09:26)
[2023-08-26] MEDS ORDERED: PROPOFOL 10 MG/ML 20 ML VIAL IV ONE (11:39)
[2023-08-26] MEDS ORDERED: MIDAZOLAM 2 MG/2 ML VIAL ONE (11:39)
[2023-08-26] MEDS ORDERED: KETAMINE HCL IN 0.9 % NACL 50 MG/5 ML SYRINGE ONE (11:39)
[2023-08-26] MEDS ORDERED: fentaNYL (PF) 50 MCG/ML 2 ML AMP ONE (11:39)
[2023-08-26] MEDS ORDERED: LIDOCAINE 1% INJ 10MG/ML (20 ML MDV) ONE (11:39)
[2023-08-26] MEDS ORDERED: TRANEXAMIC 1,000 MG/100ML-NACL PREMIX BAG ONE (11:39)
[2023-08-26] MEDS ORDERED: HYDROmorphone (PF) 1 MG/ML ONE (11:39)
[2023-08-26] MEDS ORDERED: ePHEDrine 50 MG/ML 1 ML VIAL ONE (11:39)
[2023-08-26] MEDS ORDERED: SUCCINYLCHOLINE CHLORIDE 200 MG/10 ML VIAL IV ONE (11:39)
[2023-08-26 11:42] LABS: INR 0.9 (<1.2); Partial Thromboplastin Time 25.8 sec (22.0-30.0); Prothrombin Time 10.1 sec (10.0-12.5)
[2023-08-26] MEDS: BUPIVACAINE (PF) 0.5% 30 ML VIAL SQ ONE (12:20)
[2023-08-26] MEDS: LIDOCAINE 2%-EPI 1:100,000 20 ML VIAL SQ ONE (12:20)
[2023-08-26] MEDS: VANCOMYCIN 1,000 MG VIAL MISCELLANE ONE ×2 (12:26→14:58)
[2023-08-26] MEDS: THROMBIN (BOVINE) 5,000 UNIT VIAL MISCELLANE ONE ×2 (12:26→14:58)
--- NOTE | 2023-08-26 15:23 | P.OP ---
Date of Procedure: 08/26/23 Preoperative Diagnosis: 1. 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 L3-4 STENOSIS, FACET CYST RIGHT 3. RLE WEAKNESS WITH RADICULOPATHY 4. LOW BACK PAIN Postoperative Diagnosis: 1. 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 L3-4 STENOSIS, FACET CYST RIGHT 3. RLE WEAKNESS WITH RADICULOPATHY 4. LOW BACK PAIN Procedure(s) Performed: STAGE I: 1. L3-4 LATERAL INTERBODY FUSION 2. INSERTION OF BIOMECHANICAL DEVICE L3-4 STAGE II: 1. L3-4 POSTERIOLATERAL STABILIZED FUSION 2. L3-4 SEGMENTAL INSTRUMENTATION 3. L3-4 MN LAMINOFORAMINOTOMY 4. USE OF [email or web address] NAVIGATION FOR SCREW PLACEMENT Implants: -GLOBUS RISE L 18MM 10-17MM 8 DEG CAGE -ARTHROCELL, AUTOGRAFT, CONTOUR -KIM EVEREST SCREW AND AURA SYSTEM -AUTOGRAFT, MAGNATOS Anesthesia: GETA Surgeon: Jordan Perez Corduroy Cutter Operator #1: Raciel Nair (was present and assisted with all aspects of the case from position to closure. ) Estimated Blood Loss (ml): 200 IV fluids (ml): 1,200 Urine output (ml): 350 Pathology: other (Right L3-4 facet cyst.) Condition: stable Disposition: PACU Indications for Procedure: Ms. Dee is presenting for evaluation of low back and bilateral lower extremity pain, bilateral lower extremity numbness and tingling. It was my pleasure to have seen and examined Ms. Dee. In our visit today we have had a chance to go over subjective complaints, physical examination findings and treatments including the natural course history without intervention and various interventional options. The patients jero daigle demonstrates: MRI of the lumbar spine completed at [facility] on 07/23/2023: Images reviewed with pt. large right-sided facet cyst at L3-L4 causing mass effect on the thecal sac which causes central stenosis which is moderate to severe. This also encroaches on the foramen at this level causing moderate foraminal stenosis on the right- hand side. There are very boggy and fluid-filled facets at the L3-L4 level as well. Suggesting instability.no acute fracture or lesion noted XRAY Date: 07/09/2023 Location: [facility] Region: Lumbar Views: MV (AP, Lateral, Flexion, & Extension with AP pelvis) - Re-reviewed with the patient today Images reviewed with pt. L5-S1 spondylosis with spondylolysis. No significant listhesis. DDD noted with disc collapse and facet arthrosis. L4-5 spondylosis with stenosis foraminally that is mild. No fracture or lesions noted. L3-4 Grade I spondylolisthesis that is mobile on F/E films b/l foraminal stenosis, moderate, bony, need MRI to visualize more as well as central stenosis suspected based on exam. AP pelvis shows congruent level pelvis w/o fracture. On physical exam, Ms. Dee demonstrates: A continued ache-like, tightness throughout the low back that radiates down into the left hip and posterior aspect of the bilateral thigh. The patient reports that her bilateral lower extremity pain is associated with numbness and tingling. She states her symptoms worsen after prolonged walking or standing. The patient states that her low back pain is minimal when sitting. The patient states her symptoms have been worsening over the last 2 to 3 months. She reports experiencing mild sleep disturbances related to her ongoing pain and associated symptoms. I have explained to the patient that as their condition progresses it will cause further neurological deficits and eventual paralysis. Based on the patients imaging, physical exam, and the rapid progression and disabling nature of their symptoms, at this time I recommend surgery in the form of a: Stage I: L3-4 lateral decompression and fusion Stage II: L3-4 posterolateral stabilization and fusion. I discussed the risk and benefits of this procedure at length with Ms. Dee. The patient agreed to considered pursuing the procedure above mentioned. Prior to surgery, she should follow up with her PCP (Cardio, ID, IM etc) for clearance. Questions were invited and answered, and the patient wishes to proceed as outlined below. Currently, I am recommendin.Stage I: L3-4 lateral decompression and fusion Stage II: L3-4 posterolateral stabilization and fusion Description of Procedure: L3-4 lateral interbody fusion with posterolateral instrumented fusion (LISETH) The patient was seen and examined in the preoperative area. All preoperative protocols were followed. Informed consent was obtained, risks and benefits of the procedure were discussed at length. Risks including bleeding infection damage to the surrounding tissue and risk of reoperation were discussed with the patient. Risk of anesthesia up to and including was discussed with the patient. These are outlined in the risk review. They were willing to accept these risks and all of the risks of surgery. The patient was given a weight-bas ed dose of antibiotics in the form of 2 g Ancef. The patient was seen and evaluated by the anesthesia team who deemed them fit for surgery. The site was marked, the patient was willing to proceed with the procedure. The patient was transferred to the operative suite by the Department of anesthesia. They were then drifted off to sleep by the department anesthesia and GETA was performed. The patient tolerated this well. Lamb catheter was placed by nursing staff, atraumatically. Once confirmation of lines and ventilation the patient was transferred to a flat Andres table and placed in the right lateral decubitus position. Axillary roll was placed. Hip Bump was placed. All bony prominences including wrists, elbows, axilla, chest, hips, and thighs, and feet were padded very well. Special attention was paid to the genitalia and these were padded accordingly. SCDs were placed on bilateral lower extremities and were connected. Arms were well padded and placed on armboard pillows. The patient was taped to the table and secured. Once in position, again we confirmed good ventilation capabilities and that lines were running appropriately. The patient's left lateral lumbar and flank was then exposed. 1010s were placed outlining the incision site. Standard alcohol was used to clean the incision site and allowed to dry. C-arm was used to biomark the patient and confirm level for incision which was marked with a skin marker. Operative briefing was performed with all teams and everyone in agreement to proceed. The patient was then prepped and draped in a normal sterile fashion. Timeout was then performed and all parties were in agreement with the procedure to be performed. Transverse skin incision was then made over the previously biomarker area and dissection taken down with EC to the external oblique fascia. This was then identified and two large dianelys clamps then used for blunt dissection through the external, internal and transverse abdominis inline with the level to be exposed. Once the transversalis fascia was identified the retroperitoneal space was entered bluntly and blunt dissection was used to sweep abdominal contents anteriorly. Retroperitoneal fat was identified and the psoas as well as TVP was palpated. Once this was identified a blunt probe was placed with the help of biplanar fluoroscopy at the L3-4 level. Once it was in good position in the posterior ? of the body and at the disc space, a wire was passed. IONM was used to stimulate the probes before at 2 and 5 mA with no responses in all 4 quadrants. Dilator was then placed over the probe and stimulated and there was no response again. Retractor blades were then chosen and retractor placed and secured in position and to the table. The blades were carefully then opened sli ghtly and the IONM probe sent down all 4 quadrants again without any responses at 2, 5 and 10 mA. The retractor was then opened further for visualization and the dilators and wire removed. Disc space was visible and a combination of bipolar and EC were used to clean margins and identify discs. Once it was identified, rongeur was used to remove outer osteophytes. A osteotome was then used to pass through the disc space under fluoroscopic guidance once this was passed a [place] was then passed in a similar fashion through to the opposite side to release the osteophytes on this side as well. Once these were released sequential box osteotomes were passed in a similar fashion until the disc had been completely removed. Good bleeding endplates were noted. Pituitary was used to remove any floating or excess fragments. The trial was then placed and sized. The disc space was irrigated. A [55 mm x 18 mm 8-16 mm] expandable lateral leg spine cage was then selected and placed under fluoroscopic guidance. The cages then expanded to its desired height, reducing a and restoring disc space height and lordosis and alignment. The cage was backfilled with assorted graft. The supervisor weaving was then removed and the area inspected. No injury was evident, minimal bleeding was cauterized and AP and Lateral images confirmed good placement of cage. The retractor was then removed under direct visual ization at 20 min in the psoas. The wound was copiously irrigated with NSS. The deep fascia was then closed with 0 Vicryl superficial closed with 2-0 Vicryl and the skin was closed with a 3-0 running nylon given her poor skin quality. Skin glue was then placed after it was cleaned it was then dressed sterilely with an operative foam dressing. The patient was transferred back to their hospital bed atraumatically and the beds were flipped for the second stage posteriorly. Pt was then positioned prone on a [facility] spine top table. All bony prominences including wrists, elbows, axilla, chest, hips, and thighs, and feet were padded very well. Special attention was paid to the genitalia and these were padded accordingly. SCDs were placed on bilateral lower extremities and were connected. Arms were well padded and placed on armboard pillows. The patient was taped to the table and secured. Once in position, again we confirmed good ventilation capabilities and that lines were running appropriately. The patient's left lateral lumbar and flank was then exposed. 1010s were placed outlining the incision site. Standard alcohol was used to clean the incision site and allowed to dry. C-arm was used to biomark the patient and confirm level for incision which was marked with a skin marker. Operative briefing was performed with all teams and everyone in agreement to proceed. The patient was then prepped and draped in a normal sterile fashion. Timeout was then performed and all parties were in agreement with the procedure to be performed. Skin nicks were then made over the PSIS on the LEFT side and pins placed for the [employer] Navigation tracker system. This was then secured. A 3D Ziehm spin was then obtained and registered. Once it was confirmed to be accurate, pedicles were targeted through bilateral skin incisions over L3 and L4. Navigated Jamshidi was used to plan screws followed by a navigated drill bit and drill guide. Once drilled a wire was placed in the pedicle and they were all confirmed to be in good position on AP and Lateral imaging. The L3-4 facet joint as well as lamina was then targeted with C arm for MN decompression. Initial dialator was placed and sequential dilation was done until a 26 mm tube was selected, placed and secured to the table. This was confirmed on AP and Lateral imaging. Limited myomectomy was then done over the facet joint and lamina at L3-4. Laminoforaminotomy with complete facetectomy was then done with high speed radha, kerrison and pituitary and 2-0 upbiting curette. Facets were removed and facet cyst was found down against the thecal sac. It was scarred here but was freed up without any issues and removed. This was sent for specimine. Ligamentum was then removed and laminecomty completed over the top for decompression. Area was irrigated and meticulous hemostasis done. Screws were then placed over the wires using lateral imaging. Once in position screws were tested and all tested above 20 mA. Rods were then selected and bent appropriately. Posterolateral gutters were decorticated with a high speed radha and Ventris bio placed in the PL gutters for fusion. Rods were then placed through tulip heads, subfascial and secured with set screws. Set screws were then finally tightened. Tabs were broken off. AP and Lateral imaging confirmed good placement of screws with reduction of height, lordosis and alignment. Wounds were copiously irrigated with NSS. Local anesthetic is placed remote to the incision for the block. The deep fascia was closed with 0 vicryl. Superficial closed with 2-0 Vicryl and skin closed with mick. Wound edges approximated very well. Wounds were then cleaned and dressed sterilly with optifoam dressing. The patient was then transferred to their hospital bed atraumatically. Patient was then awakened and extubated by the department of anesthesia having tolerated the procedure very well with no complications. They were transferred to the postoperative care unit in stable condition.
[2023-08-26] MEDS ORDERED: bisacodyL 10 MG SUPP RECTAL PRN (15:37)
[2023-08-26] MEDS ORDERED: MAGNESIUM HYDROXIDE 2,400 MG/30 ML CUP PO PRN (15:37)
[2023-08-26] MEDS ORDERED: NA PHOS,M-B/NA PHOS,DI-BA 133 ML ENEMA RECTAL PRN (15:37)
[2023-08-26] MEDS ORDERED: traMADol 50 MG TAB PO PRN (15:37)
[2023-08-26] MEDS ORDERED: HYDROmorphone 0.5 MG/0.5 ML SYRINGE IVP PRN (15:37)
[2023-08-26] MEDS: HYDROmorphone 0.5 MG/0.5 ML SYRINGE IVP PRN (15:50)
[2023-08-26] MEDS: fentaNYL (PF) 50 MCG/ML 2 ML AMP IVP ONE (16:56)
[2023-08-26] MEDS: LACTATED RINGERS 1,000 ML IV ONE (16:59)
[2023-08-26] MEDS: ONDANSETRON 4 MG/2 ML VIAL IVP PRN ×2 (17:22→19:45)
[2023-08-26] MEDS: DEXAMETHASONE SOD PHOSPHATE 4 MG/ML 1 ML VIAL IV ONE (18:38)
[2023-08-26] MEDS: ACETAMINOPHEN TAB 325 MG TAB PO SCH (18:46)
[2023-08-26] MEDS: HYDROmorphone 1 MG/ML 1 ML SYRINGE IVP PRN (18:46)
[2023-08-26] MEDS: GABAPENTIN 100 MG CAP PO SCH (18:46)
[2023-08-26] MEDS: CYCLOBENZAPRINE 10 MG TAB PO PRN (18:47)
[2023-08-26] MEDS: HYDROcodone/APAP 10-325MG 1 EACH TAB PO PRN (21:15)
--- NOTE | 2023-08-26 21:34 | XR ---
Fluoroscopy INDICATION: Pain FINDINGS: Fluoroscopy time: 2 minutes 20 seconds. Total dose area product (DAP) in uGy*m?, mGy*cm? (or similar): 5892.3 Images obtained: 7. IMPRESSION: 1. Documentation of fluoroscopy.
--- NOTE | 2023-08-26 22:15 | P.CONS ---
History of Present Illness - Reason for Consult Consult date: 08/26/23 Post operative medical management - Chief Complaint Low back pain - History of Present Illness 52-year-old female hypothyroid, anxiety Patient coming in for scheduled lumbar spine surgery for chronic low back pain due to degenerative spine disease patient tolerated procedure well with no immediate observed postoperative complications however patient started reporting repeated nausea vomiting after trying to eat however denies any fevers chills chest pain trouble breathing denies any abdominal pain or GI bleeding Patient has not ambulated yet she does have a Lamb catheter with good urine o utput. Patient denies any new numbness tingling or weakness in her lower extremities.. She reports that pain is well-tolerated and controlled Patient denies any tobacco smoking illicit drugs or heavy alcohol review of systems Pertinent positives as noted in HPI. All other systems were reviewed and are negative on exam Constitutional: No acute distress, conversant, pleasant Eyes: Anicteric sclerae, moist conjunctiva, Pupils equal round reactive to light ENMT: NC/AT Oropharynx clear, no erythema, or exudates Neck: Supple, no masses, or JVD No carotid bruits No thyromegaly Lungs: Clear to auscultation Clear to percussion Normal respiratory effort, no accessory muscle use Cardiovascular: Heart regular in rate and rhythm, No murmurs, gallops, or rubs No peripheral edema Abdominal: Soft Nontender, no guarding, rebound or rigidity Abdomen moving with respiration Normoactive bowel sounds Extremities: No digital cyanosis No clubbing Pedal pulses intact and symmetrical Radial pulses intact and symmetrical No calf tenderness Psychiatric: Alert and oriented to person, place and time Appropriate affect fair judgment Neuro limited exam of lower extremities due to fear of pain however patient spontaneously moving both lower extremities, muscle strength 5 / 5 bilateral upper extremities, sensation light touch grossly intact overall Past Medical History Past Medical History: Asthma, Musculoskeletal Disorder, Osteoarthritis (OA), Pneumonia, Skin Disorder, Thyroid Disorder Additional Past Medical History / Comment(s): Diverticulitis, sciatica, herniated disc, eczema. History of Any Multi-Drug Resistant Organisms: None Reported Past Surgical History: Appendectomy, Cholecystectomy, Hysterectomy Additional Past Surgical History / Comment(s): PAIN CLINIC PROCEDURES. Past Anesthesia/Blood Transfusion Reactions: No Reported Reaction Past Psychological History: No Psychological Hx Reported Smoking Status: Never smoker Past Alcohol Use History: None Reported Past Drug Use History: None Reported - Past Family History Mother Family Medical History: No Reported History Medications and Allergies Home Medications Medication Instructions Recorded Confirmed Type Cholestyramine (with Sugar) 4 gm PO QAM 10/21/19 08/26/23 History [Cholestyramine Packet] Levothyroxine Sodium [Synthroid] 50 mcg PO QAM 10/21/19 08/26/23 History Escitalopram [Lexapro] 10 mg PO QAM 08/21/23 08/26/23 History Loperamide [Imodium] 2 mg PO PRN 08/26/23 History Allergies Allergy/AdvReac Type Severity Reaction Status Date / Time amoxicillin Allergy Rash/Hives Verified 08/26/23 08:54 Physical Exam Vitals: Vital Signs Temp Pulse Pulse Resp BP Pulse Ox 08/26/23 20:10 97.8 F 73 17 97/67 96 08/26/23 17:46 69 16 126/59 100 08/26/23 17:31 67 16 126/62 95 08/26/23 17:16 88 16 112/58 99 08/26/23 17:01 81 16 108/59 100 08/26/23 16:46 82 16 110/59 100 08/26/23 16:35 83 16 108/57 100 08/26/23 16:15 87 16 105/55 96 08/26/23 16:05 84 16 110/58 96 08/26/23 15:45 88 16 116/57 93 L 08/26/23 15:36 97 F L 98 18 121/59 93 L 08/26/23 09:00 97.0 F L 64 18 143/75 99 Intake and Output 08/26/23 08/26/23 08/26/23 06:59 14:59 22:59 Intake Total 1950 900 Output Total 1125 Balance 1950 -225 Intake: IV 1950 900 Output: Urine 925 Estimated Blood Loss 200 Other: Voiding Method Indwelling Catheter Weight 111.3 kg 111.3 kg Assessment and Plan Assessment: hypothyroidism Resume with levothyroxine Anxiety Continue Lexapro Repeated nausea vomiting Symptomatic control with Zofran 4 mg IV push every 8 hours as needed Trial of Reglan 5 mg IV push once IV fluid hydration normal saline 75 cc/h Chronic low back pain status post lumbar spine surgery postoperative day 0 Further management per primary orthopedic team Follow-up CBC and BMP in the morning Thank you for this consultation patient overall stable from medical standpoint
[2023-08-26] MEDS: METOCLOPRAMIDE 5 MG/ML 2 ML VIAL IVP STA (23:59)
[2023-08-27] MEDS: diphenhydrAMINE 25 MG CAP PO PRN (00:21)
[2023-08-27] MEDS: LEVOTHYROXINE 50 MCG TAB PO SCH (06:24)
--- NOTE | 2023-08-27 08:22 | FL ---
EXAMINATION TYPE: FL guidance operating room Intraoperative/procedural fluoroscopic services were pro vided. Total fluoroscopy time is 2 minutes 20 seconds seconds with a total of 12 submitted images to PACS. Please see the operative/procedural note for further details. DAP: 5892.3 cGycm2
--- NOTE | 2023-08-27 08:24 | P.PN ---
Subjective Progress Note Date: 08/27/23 Principal diagnosis: 1. Grade I spondylolisthesis of L3 on L4, unstable 2. Right-sided facet cyst 3. Low back pain Patient seen and examined this morning. She is resting in bed. Patient reports that she is having moderate to severe low back pain and muscle spasms, RN notified. Medications will be adjusted. Encourage use of ice packs to areas to assist with pain management. Informed patient that PT will be in to work with her today. Informed her that she needs to be up to chair for all meals. Continue to encourage use of incentive spirometer. Powell catheter is to be discontinued today when patient is up and about. Surgical dressings are intact to the left lateral flank and posterior spine. No acute concerns. Objective - Vital Signs Vital signs: Vital Signs Temp 97.4 F L 08/27/23 02:00 Pulse 84 08/27/23 02:00 Resp 17 08/27/23 02:00 BP 106/67 08/27/23 02:00 Pulse Ox 98 08/27/23 02:00 FiO2 Intake & Output 08/26/23 08/27/23 08/27/23 18:59 06:59 18:59 Intake Total 2850 0 Output Total 1125 1700 Balance 1725 -1700 Weight 111.3 kg Intake: IV 2850 Oral 0 Output: Urine 925 1700 Estimated Blood Loss 200 Other: Voiding Method Indwelling Catheter - Exam Physical Examination General: The patient is awake and alert, in no acute distress Skin: Skin is warm and dry with no obvious rashes or lesions. Surgical incisions to the left lateral flank and posterior lumbar spine, dressings are clean dry and intact. Eye: Pupils are equal, round and reactive to light, extra-ocular movements are intact; there is normal conjunctiva bilaterally. Neck: The neck is supple, there is no tenderness and ROM intact. Cardiovascular: There is a regular rate and rhythm. No murmur, rub or gallop is appreciated. Respiratory: Lungs are clear to auscultation, respirations are non-labored, breath sounds are equal. Gastrointestinal: Soft, non-distended, non-tender abdomen. Back: There is no tenderness to palpation in the midline, paralumbar, parathoracic or buttocks region. There is no obvious deformity . Musculoskeletal: ROM limited secondary to pain and stiffness from surgical procedure. Muscle strength in all major muscle groups of bilateral upper extremities 5/5, bilateral lower extremities 4/5. Neurological: CN 2-12 intact. There are no obvious motor or sensory deficits. Movement and coordination equal and intact. Sensory exam to light touch intact C5-T1 and intact from L2-S1. Reflexes 2/4 in bilateral upper and lower extremities. Negative Hoffmans, babinski, and clonus signs. Psychiatric: Cooperative, appropriate mood & affect, normal judgment. Assessment and Plan Assessment: Postop day 1: Stage I L3-L4 lateral interbody fusion, Stage II L3-L4 posterior stabilization and fusion 1. Grade I spondylolisthesis of L3 on L4, unstable 2. Right-sided facet cyst 3. Low back pain Plan: -Appreciate bridal consultant and team management. -Activity: Ambulate QID, OOB all meals, up and about, limit lifting bending twisting to less than 5 lbs. Use walker or cane if needed for stability. -Daily PT/OT, increase ambulation strength and balance. -Brace when up and about, not needed in bed or chair -Pain control: Medications have been adjusted, encouraged use of ice packs to areas to assist with pain management. -Meds: reviewed -GI ppx: senna -DC powell today when up and about, bedside commode if needed -DVT PPX: OK to restart Heparin tonight -Hygiene: Shower today. Maintain dressing clean and dry. Meticulous cleaning after BMs away from the incision site -Encourage IS 10x/hr -Dispo: Anticipate discharge home tomorrow with homecare *I reviewed and discussed this case with my attending Dr. Perez, whom has reviewed this chart and films and is in agreement with assessment and plan of care as outlined above. I have personally seen and examined the patient, performed the documentation and the assessment and plan as written. Number of minutes spent on the visit: 20m.
[2023-08-27] MEDS: HYDROcodone/APAP 7.5-325MG 1 EACH TAB PO PRN ×2 (08:25→18:10)
[2023-08-27] MEDS: ESCITALOPRAM 10 MG TAB PO SCH (08:27)
[2023-08-27 08:57] LABS: Basophils # (A) 0.03 X 10*3/uL (0.00-0.10); Basophils % (A) 0.3 %; Eosinophils # (A) 0 X 10*3/uL (0.04-0.35); Eosinophils % (A) 0 %; HGB 12.3 g/dL (12.0-15.0); Lymphocytes # (A) 0.86 X 10*3/uL (0.90-5.00); Lymphocytes % (A) 9.2 %; MCH 28.8 pg (27.0-32.0); MCHC 31.5 g/dL (32.0-37.0); MCV 91.3 FL (80.0-97.0); Mean Platelet Volume 12.4 FL (9.5-12.2); Monocytes # (A) 0.42 X 10*3/uL (0.20-1.00); Monocytes % (A) 4.5 %; NRBC Per 100 WBC 0 X 10*3/uL (0.00-0.01); Neutrophils # (A) 8.04 X 10*3/uL (1.80-7.70); Neutrophils % (A) 85.6 %; Platelet Count 179 X 10*3/uL (140-440); RBC 4.27 X 10*6/uL (4.10-5.20); RDW 13.5 % (11.5-14.5); WBC 9.39 X 10*3/uL (4.50-10.00)
[2023-08-27 09:19] LABS: Blood Urea Nitrogen 7.5 mg/dL (9.0-27.0); Calcium 8.7 mg/dL (8.7-10.3); Carbon Dioxide 29.2 mmol/L (21.6-31.8); Chloride 103 mmol/L (96-109); Glucose 108 mg/dL (70-110); Potassium 4.4 mmol/L (3.5-5.5); Sodium 142 mmol/L (135-145)
[2023-08-27] MEDS ORDERED: HYDROcodone/APAP 7.5-325MG 1 EACH TAB PO PRN (10:21)
[2023-08-27] MEDS: HYDROcodone/APAP 10-325MG 1 EACH TAB PO SCH (10:37)
[2023-08-27] MEDS: CYCLOBENZAPRINE 10 MG TAB PO SCH (10:39)
[2023-08-27] MEDS: SENNOSIDES-DOCUSATE SODIUM 1 EACH TAB PO SCH (10:40)
[2023-08-27] MEDS: KETOROLAC 15 MG/ML 1 ML VIAL IVP PRN (10:42)
--- NOTE | 2023-08-27 10:50 | CT ---
EXAMINATION TYPE: CT lumbar spine wo con DATE OF EXAM: 08/27/2023 COMPARISON: 07/16/2023 MRI HISTORY: Status post lumbar fusion CT DLP: 1333.4 mGycm CONTRAST: None TECHNIQUE: CT of the lumbar spine is performed on a spiral scan at 3 mm thick sections. Reconstructed images are performed in the coronal and sagittal planes. FINDINGS: Vertebral body alignment appears preserved. There is fixation and disc spacer present L3-4. No focal disc herniation or significant disc bulge is evident. No spinal canal stenosis or neural for aminal stenosis present. Some compressive atelectasis may be in the posterior medial left lung base. IMPRESSION: 1. Postsurgical changes with L3 for fixation and disc spacer.
--- NOTE | 2023-08-27 17:36 | P.PN ---
Subjective Progress Note Date: 08/27/23 Hospital course: Patient is a very pleasant 52-year-old female with a past medical history of hypothyroidism, asthma, depression, and osteoarthritis. She is currently admitted under orthospine surgery team status post lumbar fusion and insertion of biomechanical cage. We were consulted for medical management throughout patient's hospitalization. Physical exam: Vital signs reviewed and stable. General: Nontoxic, no distress and appears stated age. Derm: Skin warm and dry, normal coloration for ethnicity. Head: Atraumatic, normocephalic and symmetric. Eyes: EOMs intact, no lid lag, and anicteric sclera Mouth: no lip lesions, mucus membranes moist Cardiovascular: regular rate and rhythm with normal S1S2, no murmur, positive posterior tibial pulses bilaterally, and cap refill < 2 seconds. Lungs: Respirations even, regular, and unlabored on room air. Lungs CTA bilaterally, no rhonchi, no rales, no wheezing, and no accessory muscle usage. Abdominal: soft, nontender to palpation, no guarding, no appreciable organomegaly. Lamb catheter in place. Ext: ROM intact. No gross muscle atrophy, no edema, no contractures Neuro: Speech clear, face symmetrical and CN II-XII grossly intact with no noted focal neuro deficits Psych: Alert and oriented to person, place, time, and situation. Appropriate and pleasant affect. Assessment and Plan of Care: Status post lumbar fusion and insertion of biomechanical cage Management per primary admitting orthospine surgery team including DVT prophylaxis, pain management, wound/dressing/drain management, and PT/OT. Hypothyroidism Continue levothyroxine 50 mcg daily. Depression Continue Lexapro 10 mg daily. Data reviewed: Postoperative labs reviewed. CBC unremarkable with post operative Hgb of 12.3. Vitals reviewed. BP 125/84. HR 77, RR 18, T 97.5, and SPO2 100% 3L. Thank you for allowing us to participate in the care of this pleasant patient. Do not hesitate to contact us with questions. Someone can be reached from the [facility] hospitalist group all hours of the day at [phone] or via perfect serve. Patient was seen independently by Nurse Pracitioner. This document was prepared using [employer] dictation software. Please allow for errors in can carrier, while rare they do occur. I reviewed the documentation as provided by the SEVERIANO above, who is the original author of this note. I agree with the documented assessment and plan, with the following changes: none Objective - Vital Signs Vital signs: Vital Signs Temp 97.5 F L 08/27/23 07:17 Pulse 77 08/27/23 07:17 Resp 18 08/27/23 07:17 BP 125/84 08/27/23 07:17 Pulse Ox 100 08/27/23 07:17 FiO2 Intake & Output 08/26/23 08/27/23 08/27/23 18:59 06:59 18:59 Intake Total 2850 0 Output Total 1125 1700 Balance 1725 -1700 Weight 111.3 kg Intake: IV 2850 Oral 0 Output: Urine 925 1700 Estimated Blood Loss 200 Other: Voiding Method Indwelling Catheter - Labs CBC & Chem 7: 08/27/23 04:31 08/27/23 04:31
--- NOTE | 2023-08-28 06:14 | P.PN ---
Subjective Progress Note Date: 08/28/23 Hospital course: Patient is a very pleasant 52-year-old female with a past medical history of hypothyroidism, asthma, depression, and osteoarthritis. She is currently admitted under orthospine surgery team status post lumbar fusion and insertion of biomechanical cage. We were consulted for medical management throughout patient's hospitalization. Subjective: Patient continues to complain of left lower extremity pain, especially when she ambulates. She is still requiring oxygen, has been intermittently using inc entive spirometer. Denies fevers, chills. Physical exam: Gen: In NAD, non-toxic HEENT: normocephalic, atraumatic, hearing acuity is intant, mucous membranes moist CVS: perfusing all extremities well, no pitting edema, Respiratory: symmetric chest expansion, no accessory muscle use, GI: soft, NTTP, ND, : no suprapubic tenderness, no CVA tenderness MSK/Derm: no rashes, cyanosis Neuro: CN II-XII intact, no motor weakness, Psych: cooperative, euthymic mood, judgment and insight is intact Assessment and Plan of Care: Status post lumbar fusion and insertion of biomechanical cage Management per primary admitting orthospine surgery team including DVT prophylaxis, pain management, wound/dressing/drain management, and PT/OT. Acute hypoxemic respiratory failure -Likely secondary to atelectasis, incentive spirometer was emphasized today -If no improvement with the use of incentive spirometer and ambulation, recommend chest x-ray, but will hold off at this time Hypothyroidism Continue levothyroxine 50 mcg daily. Depression Continue Lexapro 10 mg daily. Data reviewed: Postoperative labs reviewed. CBC unremarkable with post operative Hgb of 12.3. Vitals reviewed. BP 125/84. HR 77, RR 18, T 97.5, and SPO2 100% 3L. Thank you for allowing us to participate in the care of this pleasant patient. Do not hesitate to contact us with questions. Someone can be reached from the [facility] hospitalist group all hours of the day at [phone] or via perfect serve. This document was prepared using [employer] dictation software. Please allow for errors in tire repairman, while rare they do occur. Objective - Vital Signs Vital signs: Vital Signs Temp 98.0 F 08/28/23 01:09 Pulse 80 08/28/23 01:09 Resp 16 08/28/23 01:09 BP 99/64 08/28/23 01:09 Pulse Ox 98 08/28/23 01:09 FiO2 Intake & Output 08/27/23 08/27/23 08/28/23 06:59 18:59 06:59 Intake Total 0 Output Total 1700 1100 Balance -1700 -1100 Intake: Oral 0 Output: Urine 1700 1100 Other: Voiding Method Indwelling Catheter Indwelling Catheter Toilet # Voids 1 1 - Labs CBC & Chem 7: 08/27/23 04:31 08/27/23 04:31 Labs: Abnormal Lab Results - Last 24 Hours (Table) 08/27/23 08/27/23 Range/Units 04:31 04:31 MCHC 31.5 L (32.0-37.0) g/dL MPV 12.4 H (9.5-12.2) FL Neutrophils # 8.04 H (1.80-7.70) X 10*3/uL Lymphocytes # 0.86 L (0.90-5.00) X 10*3/uL Eosinophils # 0 L (0.04-0.35) X 10*3/uL BUN 7.5 L (9.0-27.0) mg/dL
[2023-08-28 07:44] VITALS: BP 128/87; PULSE 82; RESP 15; TEMP 97.6
--- NOTE | 2023-08-28 07:49 | P.PN ---
Subjective Progress Note Date: 08/28/23 Principal diagnosis: 1. Grade I spondylolisthesis of L3 on L4, unstable 2. Right-sided facet cyst 3. Low back pain Patient seen and examined this morning. She is resting in bed. Patient reports that her pain is controlled much better on current regimen. Assisted patient to bedside, tolerated activity well. She reports some difficulty with her lower extremity, she states prior to surgery it felt much heavier, but now she is having "delay" of it moving when she wants it to. Discussed with patient that her symptoms can be the result of the manipulation, positioning, and swelling from procedure. LSO brace has been delivered to bedside. She states she does have a rolling walker available for home. Encouraged patient to participate with PT and to ambulate within hallways today. Informed patient that we are anticipating discharge home with homecare later today. Continue to encourage use of incentive spirometer. Surgical dressings are intact to the left lateral flank and posterior spine. No acute concerns. Objective - Vital Signs Vital signs: Vital Signs Temp 98.0 F 08/28/23 01:09 Pulse 80 08/28/23 01:09 Resp 16 08/28/23 01:09 BP 99/64 08/28/23 01:09 Pulse Ox 98 08/28/23 01:09 FiO2 Intake & Output 08/27/23 08/28/23 08/28/23 18:59 06:59 18:59 Output Total 1100 Balance -1100 Output: Urine 1100 Other: Voiding Method Indwelling Catheter Toilet # Voids 1 2 - Exam Physical Examination General: The patient is awake and alert, in no acute distress Skin: Skin is warm and dry with no obvious rashes or lesions. Surgical incisions to the left lateral flank and posterior lumbar spine, dressings are clean dry and intact. Eye: Pupils are equal, round and reactive to light, extra-ocular movements are intact; there is normal conjunctiva bilaterally. Neck: The neck is supple, there is no tenderness and ROM intact. Cardiovascular: There is a regular rate and rhythm. No murmur, rub or gallop is appreciated. Respiratory: Lungs are clear to auscultation, respirations are non-labored, breath sounds are equal. Gastrointestinal: Soft, non-distended, non-tender abdomen. Back: There is no tenderness to palpation in the midline, paralumbar, parathoracic or buttocks region. There is no obvious deformity . Musculoskeletal: ROM limited secondary to pain and stiffness from surgical procedure. Muscle strength in all major muscle groups of bilateral upper extremities 5/5, right lower extremity 4-/5, left lower extremity 4/5 Neurological: CN 2-12 intact. There are no obvious motor or sensory deficits. Movement and coordination equal and intact. Sensory exam to light touch intact C5-T1 and intact from L2-S1. Reflexes 2/4 in bilateral upper and lower extremities. Negative Hoffmans, babinski, and clonus signs. Psychiatric: Cooperative, appropriate mood & affect, normal judgment. - Labs CBC & Chem 7: 08/27/23 04:31 08/27/23 04:31 Labs: Abnormal Lab Results - Last 24 Hours (Table) 08/27/23 08/27/23 Range/Units 04:31 04:31 MCHC 31.5 L (32.0-37.0) g/dL MPV 12.4 H (9.5-12.2) FL Neutrophils # 8.04 H (1.80-7.70) X 10*3/uL Lymphocytes # 0.86 L (0.90-5.00) X 10*3/uL Eosinophils # 0 L (0.04-0.35) X 10*3/uL BUN 7.5 L (9.0-27.0) mg/dL Assessment and Plan Assessment: Postop day 2: Stage I L3-L4 lateral interbody fusion, Stage II L3-L4 posterior stabilization and fusion 1. Grade I spondylolisthesis of L3 on L4, unstable 2. Right-sided facet cyst 3. Low back pain Plan: -Appreciate outside sales consultant and team management. -Activity: Ambulate QID, OOB all meals, up and about, limit lifting bending twisting to less than 5 lbs. Use walker or cane if needed for stability. -Daily PT/OT, increase ambulation strength and balance. -Brace when up and about, not needed in bed or chair -Pain control: Medications have been adjusted, encouraged use of ice packs to areas to assist with pain management. -Meds: reviewed -GI ppx: senna -DVT PPX: Heparin -Hygiene: Shower today. Maintain dressing clean and dry. Meticulous cleaning after BMs away from the incision site -Encourage IS 10x/hr -Dispo: Anticipate discharge home later today with homecare *I reviewed and discussed this case with my attending Dr. Perez, whom has reviewed this chart and films and is in agreement with assessment and plan of care as outlined above. I have personally seen and examined the patient, performed the documentation and the assessment and plan as written. Number of minutes spent on the visit: 20m.
[2023-08-28] MEDS: CHOLESTYRAMINE (WITH SUGAR) 4 GM PACKET PO SCH (08:06)
[2023-08-28] MEDS: HEPARIN SODIUM,PORCINE 5,000 UNIT/ML 1 ML VIAL SQ SCH (08:08)
--- NOTE | 2023-08-28 13:04 | P.DS ---
Providers Date of admission: 08/26/23 07:49 Expected date of discharge: 08/28/23 Attending physician: Jordan Perez DO Consults: 08/26/23 18:23 Consult Physician Routine Consulting Provider: Jessica Orozco Consult Reason/Comments: medical managment. Do you want consulting provider notified?: Yes Primary care physician: [facility] Course: Hospital Course: The patient was evaluated preoperatively and found to have the diagnosis of Lumbar spondylosis. They underwent appropriate preoperative care and were willing to undergo the intended procedure. They underwent a successful Stage I L3-L4 lateral interbody fusion, stage II L3-L4 posterior stabilization and fusion were recovered appropriately and sent to the floor. While on the floor they worked with physical therapy, occupational therapy and nursing to enhance their recovery experience. Their pain was well controlled through their stay and they were started on appropriate medications, DVT ppx modalities, activity and dietary needs. Daily labs were monitored closely, and transfusions were only used when necessary. Medicine as well as other consulting services have made their input and have helped with our team approach and multidisciplinary care. PT milestones have been met and passed and they have made the recommendation of Home with home care for this patient and treating providers agree with this care path. The patient will be discharged home with appropriate medications, instructions and follow-up information and in stable condition. Patient Condition at Discharge: Good Plan - Discharge Summary Discharge Rx Participant: Yes New Discharge Prescriptions: New HYDROcodone/APAP 7.5-325MG [[place] 7.5-325] 1 tab PO Q4-6H PRN #42 tab PRN Reason: Pain Sulfamethoxazole/Trimethoprim [Bactrim DS 800-160 mg] 1 each PO BID #10 tablet Cyclobenzaprine [Flexeril] 10 mg PO TID PRN #40 tab PRN Reason: Muscle Spasm Gabapentin [Neurontin] 100 mg PO TID 3 Days #90 cap Sennosides/Docusate Sodium [Senna Plus 8.6-50 mg Softgel] 1 each PO DAILY PRN #20 capsule PRN Reason: Constipation No Action Cholestyramine (with Sugar) [Cholestyramine Packet] 4 gm PO QAM Levothyroxine Sodium [Synthroid] 50 mcg PO QAM Escitalopram [Lexapro] 10 mg PO QAM Loperamide [Imodium] 2 mg PO PRN PRN Reason: Diarrhea Discharge Medication List Cholestyramine (with Sugar) [Cholestyramine Packet] 4 gm PO QAM 10/21/19 [History] Levothyroxine Sodium [Synthroid] 50 mcg PO QAM 10/21/19 [History] Escitalopram [Lexapro] 10 mg PO QAM 08/21/23 [History] Loperamide [Imodium] 2 mg PO PRN 08/26/23 [History] Cyclobenzaprine [Flexeril] 10 mg PO TID PRN #40 tab 08/28/23 [Rx] Gabapentin [Neurontin] 100 mg PO TID 3 Days #90 cap 08/28/23 [Rx] HYDROcodone/APAP 7.5-325MG [[place] 7.5-325] 1 tab PO Q4-6H PRN #42 tab 08/28/23 [Rx] Sennosides/Docusate Sodium [Senna Plus 8.6-50 mg Softgel] 1 each PO DAILY PRN #20 capsule 08/28/23 [Rx] Sulfamethoxazole/Trimethoprim [Bactrim DS 800-160 mg] 1 each PO BID #10 tablet 08/28/23 [Rx] Follow up Appointment(s)/Referral(s): [facility], [NON-STAFF] - As Needed (Agency will call 24 to 48 hours after discharge to schedule an appointment. ) Jordan Perez DO [Doctor of Osteopathic Medicine] - 2 Weeks Senthil Paulson DO [Primary Care Provider] - 1 Week Activity/Diet/Wound Care/Special Instructions: Spine Discharge and Recovery Instructions Date of Surgery: 08/26/2023 Diagnosis: Lumbar spondylosis Procedure: Stage I L3-L4 lateral interbody fusion, Stage II L3-L4 posterior stabilization with fusion Medications: See medication list All medication refills should be obtained through your primary care doctor or your clinic spine surgeon. Please discuss prescription refills at your follow up appointment. Do not call the hospital for medication refills. Activity: Encourage ambulation with assist of walker, Up and about 6-8x daily PT/OT daily work on balance, strength and mobility Up in chair with all meals Shower daily Brace: Use brace when up and about, do not wear in bed or shower Dressing: Leave your dressing in place for a total of 3 days post operatively. Then you may remove your dressing and leave open to air. Keep the area clean and if not able to keep area clean, then cover with sterile gauze and tape. Showering: You may shower 3 days after your procedure allowing soap and water to run over incision. Do not scrub. Do not soak. Blot dry. Follow up: Please confirm a follow up appointment with your surgeon 2 weeks post operatively. Please make an appointment to follow up with your PCP in 1-2 weeks after surgery for evaluation 3 phase, 3-week plan POST OP WEEKS 1-3 1. Lifting/carrying/pushing/pulling limited to less than 5 pounds. 2. Do not sit for longer than 15 minutes at one time. Get up and walk around. Prolonged sitting is NOT advised. If you lay down, see if you can tolerate laying down on you front (belly side) 3. Walk for periods of 15 minutes = 1 mile but no longer; do it multiple times times each day. 4. Ice your low back after activity. POST OP WEEKS 3-6 1. Lifting limited to less than 10 pounds. 2. Do not sit for longer than 30 minutes at a time. Frequently change positions. Use a sit-to stand workstation or take frequent breaks from sitting if you have returned to work. 3. Walk for 30 minutes each day. If possible, do these three or more times a day POST OP WEEKS 6+ At your 6-week appointment we will give you a physical therapy referral to focus on a core stabilization and strengthening program. You should also work on leg & buttock strengthening, hamstring & quadriceps stretching, and continue a low impact aerobic activity program such as swimming, walking, or riding a stationary bicycle. During the initial 6 weeks after your surgery, you are at the highest risk of re-injuring your spine. You should generally avoid BLTs (bending, lifting and twisting combination motions) and follow the above guidelines to reduce the chance of reinjury. You can anticipate post op appointments in our office at approximately 3 weeks and 6 weeks after your surgery. INCISION CARE: If your incision is not draining you do NOT need to cover it with a dressing. Keep your incision clean, dry and intact. In most cases, we apply skin glue, mick or sutures to the incision at the time of surgery. This will be like a crust or have the appearance of a scab and will fall off in time on its own. The stitches or mick need to be removed at 3 weeks post op appointment. You may begin to shower 3 days after surgery (this allows the glue to downing well). However, please avoid scrubbing the incision site or peeling off any of the skin glue. This will ensure optimal healing of your incision. Also, during this time avoid soaking the incision area in water - this includes swimming pools, hot tubs or baths. No ointments, lotions or oils on the incision until your surgeon allows. Leave mick, sutures or glue in place. Neurological dysfunction that comes on suddenly can also be a sign of a stroke. Below some common symptoms of a stroke are listed: B - balance difficulty such as sudden onset walking or leaning to one side - NEW E - eye problem such as sudden double vision or trouble seeing on one side - NEW F - Facial weakness or numbness on one side - NEW A - Arm or leg weakness or numbness on one side - NEW S - Slurred speech or difficulty with word finding - NEW T - Time is BRAIN! Call 911 as soon as you recognize these symptoms Diet: Consume a regular diet rich in vegetables and lean protein such as chicken or fish. You should consume in a ratio of approximately 20% fats|40% carbohydrates|40%protein. Vegetables, sweet potatoes, brown rice or quinoa are examples of good carbohydrates. Chips, white bread, cookies and sweets/sugar are examples of bad carbohydrates. Limit your bad carbs, go wild with good carbs. "Life's Simple 7" Guidelines as per [place] [employer] These will help you reclaim your life after surgery and general maintenance helper in your recovery, keeping in mind your restrictions. (1) Get Active. Physical activity can help people lose weight, control high blood pressure and cholesterol, feel emotionally better, and sleep better. (2) Control Cholesterol. Avoid a diet high in saturated fat, trans fat, & cholesterol. Limit whole milk & cream, ice cream, butter, egg yolks, processed meats (like sausage and hot dogs), and fatty meats. Choose healthy foods that are low in saturated fat, trans fat and cholesterol which include: Fruits and vegetables, fiber rich grain products (like whole grain pasta and brown rice), lean meat such as chicken, fish, nuts, seeds, and legumes. (3) Eat Better. Eat small portions. Shop at the grocery with a list and do not stray from it. Tips for a healthy diet include: Limit sodium intake to less than 1500mg daily, avoid prepackaged, processed, and fast foods, choose a diet rich in fruits, vegetables, and whole grain, high fiber foods, and limit saturated & cholesterol in your diet. (4) Manage Blood Pressure. If you have high blood pressure, you should have a cuff at home so that you can check your blood pressure regularly. Be sure you have a good cuff. An arm one is generally better than a wrist one. Bring the cuff to a doctor's appointment to validate that the measurements that your cuff are taking are accurate. Take your blood pressure twice daily when you are sitting down and relaxing. Record the numbers in a log and bring this log with you to your doctors' appointments. (5) Lose Weight if your BMI is above 25. A healthy BMI is between 19-25. To calculate Your BMI, you may use a Standard BMI Calculator on the NIH BMI website: <www.nhlbi.nih.gov/guidelines/obesity/BMI/bmicalc.htm>. Weigh oneself daily. If you are overweight, set a goal to lose weight. A pound a week loss if needed is a good target. (6) Reduce Blood Sugar. Limit foods and liquids with "added sugars." (Added sugars include sucrose, fructose, glucose, maltose, dextrose, high fructose corn syrup, corn syrup, concentrated fruit juice and honey). (7) Stop Smoking. If you smoke, quitting smoking is one of the best things that you can do for your health. Smoking increases your risk of heart attack, stroke, and peripheral vascular disease, which is a build-up of plaque in your arteries. Please discard all the cigarettes and lighters in your house. Have a plan for what you will do when you have the urge to smoke. Direct and second- hand smoke shortens your life as well as the lives of your family, friends and others around you. For your health and the health of those around you, please consider quitting! Proper Bending Body Mechanics: Maintain a wide stance with one foot slightly in front of the other. Keep your back straight. Bend utilizing the strength in your hips and knees. Do not bend at the waist. Maintain the lifted object at your waist-level close to your body. Avoid lifting weight that causes immediately pain or pain anywhere in the body afterwards. Smoking/Nicotine If there was ever one thing that you could do to increase your overall health, decrease your risk of cardiovascular problems by about 39% the second you make the choice, it is to STOP SMOKING. Your body's most instant gratification is the second you stop smoking. We have all heard the studies, read the articles but it is true, smoking is extremely bad for your overall health, and moreover it is detrimental to your bone health. Nicotine, IN ANY FORM, kills bone cells, prevents your body from healing fractures, and significantly prolongs healing after surgery. In spine surgery specifically, it increases your risk of not healing your bones to create a fusion and increases your risk of having a revision surgery due to this up to 60%. I know it is hard. I know it feels impossible. But there are ways. Take control of your life. We are here to help you through it. And when you are ready, ask us and we can direct you to help if you desire. Use the START Plan to Quit Smoking (please visit the Helpguide.org website listed below for more information): S = Set a quit date. Choose a date within the next 2 weeks, so you have enough time to prepare without losing your motivation to quit. If you mainly smoke at work, quit on the weekend, so you have a few days to adjust to the change. T = Tell family, friends, and co-workers that you plan to quit. Let your friends and family in on your plan to quit smoking and tell them you need their support and encouragement to stop. Look for a quit nhi who wants to stop smoking as well. You can help each other get through the rough times. A = Anticipate and plan for the challenges you'll face while quitting. Most people who begin smoking again do so within the first 3 months. You can help yourself make it through by preparing ahead for common challenges, such as nicotine withdrawal and cigarette cravings. R = Remove cigarettes and other tobacco products from your home, car, and work. Throw away all your cigarettes (no emergency pack!), lighters, ashtrays, and matches. Wash your clothes and freshen up anything that smells like smoke. Shampoo your car, clean your drapes and carpet, and steam your furniture. T = Talk to your doctor about getting help to quit. Your doctor can prescribe medication to help with withdrawal and suggest other alternatives. If you can't see a doctor, you can get many products over the counter at your local pharmacy or grocery store, including the nicotine patch, nicotine lozenges, and nicotine gum. Resources for Quitting Smoking: <https://www.[place].gov/documents/[facility]/Quit_Tobacco_Resources_for_patients_313 480_7.pdf> Supplementation: Take recommended dosages of Vitamin D and Calcium to help fortify your bones and help them to heal. See your health maintenance packet for dosages and recommended levels. DVT/VTE prophylaxis: You will be given compression stockings from the hospital. Wear these daily for the first two weeks after surgery. You may take them off at night. You may be prescribed a medication to help thin your blood. Take this as directed. If you are not prescribed this medication, early and frequent ambulation has been shown to be the best prophylaxis to deep vein thrombosis and sequelae related to this event. Discharge Disposition: HOME WITH HOME HEALTH SERVICES
--- NOTE | 2023-08-28 13:14 | CDI ---
Documentation Clarification Form Date: 08/28/2023 12:14:50 PM From: Emma Higuera RN, CCDS Phone: [phone] Admit Date: 08/26/2023 07:49:00 AM Patient Name: Brittany Dee Visit Number: [id number] Discharge Date: ATTENTION: The Clinical Documentation Specialists (CDI) and [facility] Coding Staff appreciate your assistance in clarifying documentation. Please respond to the clarification below the line at the bottom and electronically sign. The CDI & [facility] Coding staff will review the response and follow-up if needed. Please note: Queries are made part of the Legal Health Record. If you have any questions, please contact the author of this message via ITS. Dr. Sushma Vela Acute hypoxemic respiratory failure is documented in the progress notes on which may lack sufficient clinical evidence/support in the medical record. Additional clarification is requested. History/Risk Factors: Clinical Indicators: 52-year-old female admitted under orthopedic surgery team status post lumbar fusion and insertion of biomechanical cage. Respiratory therapy assessment: 08/25 Normal Non-Labored Room, 98/2 L; 08/26 Normal Non-Labored 98 % 3/L; 08/27 Normal Non-Labored 92% standby 08/27 IM progress note Acute hypoxemic respiratory failure-Likely secondary to atelectasis, incentive spirometer was emphasized today. Vitals reviewed. BP 125/84. HR 77, RR 18, T 97.5, and SPO2 100% 3L. 08/26 (07:17) VS 125/84 77 18 3/L NC Respiratory rate normal non-labored Treatment: Monitor O2 Sat's (titrate) Encourage Incentive spirometer 10X/HR Please clarify if acute hypoxic respiratory failure is a valid diagnosis? [x] Yes acute hypoxic respiratory failure, is present as evidence by (additional clinical support): oxygen requirement of 2-3L NC [ ] No, acute hypoxic respiratory failure is ruled out [ ] Other (please specify diagnosis) [ ] Unable to determine (Template Last Revised: July 2020) MTDD
== END 2023-08-28 14:46 | disposition home health service (06) | DRG 453 ==
LOC: 2ORMAIN 07:49 → 4SSUR 16:56
PROVIDERS: ADMIT Orthopaedic Surgery; ATTEND Orthopaedic Surgery
PROC: 0SG00AJ Fusion of Lumbar Vertebral Joint with Interbody Fusion Device, Posterior Approach, Anterior Column, Open Approach (ICD-10-PCS; 2023-08-26)
PROC: 0SB20ZZ Excision of Lumbar Vertebral Disc, Open Approach (ICD-10-PCS; 2023-08-26)
PROC: 01NB0ZZ Release Lumbar Nerve, Open Approach (ICD-10-PCS; 2023-08-26)
PROC: 01NR0ZZ Release Sacral Nerve, Open Approach (ICD-10-PCS; 2023-08-26)
PROC: 00NY0ZZ Release Lumbar Spinal Cord, Open Approach (ICD-10-PCS; 2023-08-26)
PROC: 4A11X4G Monitoring of Peripheral Nervous Electrical Activity, Intraoperative, External Approach (ICD-10-PCS; 2023-08-26)
PROC: 8E0WXBG Computer Assisted Procedure of Trunk Region, With Computerized Tomography (ICD-10-PCS; 2023-08-26)
PROC: 0SG0071 Fusion of Lumbar Vertebral Joint with Autologous Tissue Substitute, Posterior Approach, Posterior Column, Open Approach (ICD-10-PCS; principal; 2023-08-26 10:15)
DX: M43.16 Spondylolisthesis, lumbar region (principal); J96.01 Acute respiratory failure with hypoxia; M47.27 Other spondylosis with radiculopathy, lumbosacral region; M71.38 Other bursal cyst, other site; M53.2X7 Spinal instabilities, lumbosacral region; M48.061 Spinal stenosis, lumbar region without neurogenic claudication; J45.909 Unspecified asthma, uncomplicated; M19.90 Unspecified osteoarthritis, unspecified site; E03.9 Hypothyroidism, unspecified; G89.29 Other chronic pain; F32.A Depression, unspecified; F41.9 Anxiety disorder, unspecified; M25.78 Osteophyte, vertebrae; Z79.890 Hormone replacement therapy; Z90.710 Acquired absence of both cervix and uterus; Z90.49 Acquired absence of other specified parts of digestive tract; Z87.01 Personal history of pneumonia (recurrent)
CPT/HCPCS: 72100; 72131; 80048; 83735; 85025; 85610; 85730; 88305; 94760

== ENCOUNTER → 2024-06-07 | Outpatient (CLI) | payer MEDICAID ==
--- NOTE | 2024-06-07 11:11 | XR ---
EXAMINATION TYPE: XR foot complete LT DATE OF EXAM: 06/07/2024 COMPARISON: NONE CLINICAL INDICATION: Female, 53 years old with history of [id number] LT FOOT PAIN; TECHNIQUE: 3 views FINDINGS: Yodgw-wx-vglyrnop sized plantar heel spur. No acute fracture, subluxation, dislocation. Sma ll os peroneum. Subtalar joint is aligned. IMPRESSION: Jljdo-bo-juanmigf sized plantar heel spur. No acute osseous abnormality seen. [facility], Workstation: [facility], 06/07/2024 11:08 AM
== END | disposition home or self-care (01) ==
LOC: RADXRYALE 08:53
PROVIDERS: ATTEND Physician Assistant Medical
DX: M77.32 Calcaneal spur, left foot (principal); M79.672 Pain in left foot

== ENCOUNTER → 2024-08-11 | Outpatient (CLI) | payer MEDICAID ==
--- NOTE | 2024-08-11 20:06 | MR ---
EXAMINATION TYPE: MR lumbar spine wo con DATE OF EXAM: 08/11/2024 COMPARISON: CT lumbar spine August 27, 2023. Lumbar spine x-ray July 30, 2024 HISTORY: low back pain that radiates down left leg for 2 months. History of surgery 08-26-23 TECHNIQUE: Multiplanar, multisequence imaging of the lumbar spine is performed without IV contrast. FINDINGS: Sagittal images of the lumbar spine show vertebral body heights to appear satisfactory. Sta ble grade 1 anterolisthesis of L3 on L4. There is susceptibility artifact from bilateral posterior in terpedicular rods and screws and metallic disc spacer at the L3-L4 level. There is disc desiccation w ith mild disc space narrowing at the L5-S1 level. The conus medullaris is normal in position and sig nal ending mid L1 level. The bone marrow signal intensity is within normal limits above and below graham rgical levels.. Axial images show T12-L1 and L1-L2 levels to appear within normal limits. Axial images at the L2-L3 level show some artifact from surgical change otherwise appear unremarkable . Axial images at L3-L4 level show artifact from surgical change. Bilateral neural foramina are patent. Axial images at L4-L5 level shows mild facet arthropathy bilaterally. Spinal canal is preserved. Axial images at L5-S1 level show mild facet arthropathy bilaterally. There is tiny right paracentral disc protrusion minimally effacing anterior thecal sac. Bilateral neural foramina are patent. IMPRESSION: Postsurgical change L3-L4 level is present. No new large disc herniation seen to account for patient's left-sided radiculopathy type symptoms. [facility], , 08/11/2024 8:04 PM
== END | disposition home or self-care (01) ==
LOC: RADMRIMAIN 18:54
PROVIDERS: ATTEND Orthopaedic Surgery
DX: M62.81 Muscle weakness (generalized) (principal); M54.50 Low back pain, unspecified; Z98.890 Other specified postprocedural states
CPT/HCPCS: 72148

== ENCOUNTER → 2024-09-09 | Outpatient (CLI) | payer MEDICAID ==
[2024-09-09 08:58] VITALS: BP 134/94; PULSE 74; RESP 16
--- NOTE | 2024-09-09 15:17 | P.PAINPG ---
PQRS Measure Charge Sheet Comment: HISTORY OF PRESENT ILLNESS: A 53 yr old female as a referral from Dr Perez presents today w severe and chronic LBP since 2018 secondary to failed L3-L4 PLIF, L Sacroiliitis for evaluation. Pt underwent a BL RFA L4-L5/ L5-S1 in 2019 where she experienced 80% pain relief x 2 yrs s/p procedure. Pt states pain level is provoked at 6 /10 in intensity, constant, localized in the lumbar spine L> R, predominantly axial, sharp in character w occasional shooting pain towards the L side of back. Pain is provoked by standing/ walking for periods > 20 min. Pain is alleviated by PT x 8 wks which ended in Spr 2023, physician guided home exercises 4-5 times weekly since Spr 2023, massage therapy semi monthly since 2022 which she is currently in, heat, ice, medications, repositioning and rest . Oswestry axial pain score at . PMH: OA, Asthma, Exzema, Hypothyroidism PSH: L3-L4 PLIF (2023), Appendectomy, Cholecystectomy, Hysterectomy, BL RFA L3- L5 (2019) SH: Negative x3 FH: Non contributory All: See list Meds: See list include Naproxen, Tyl REVIEW OF ORGAN SYSTEMS: CONSTITUTIONAL: No fevers or chills. No recent weight loss. NEUROLOGICAL: + numbness and tingling along the distal extremities. No seizure disorders or headaches. MUSCULOSKELETAL: + pain PSYCHIATRIC: Denies current depression or suicidal thoughts. Physical Examinations : Constitutional : Cooperative , not in acute distress . Neurologic : Cranial nerve II to XII intact. No focal neurological deficits. Psychiatric : alert & oriented x 3. Matching mood & appropriate affect. Judgment & insight intact. Musculoskeletal : Cervical Spine Motor strength in the deltoid and biceps: Normal right side. Normal Left side Motor strength biceps and the wrist extensors: Normal right side . Normal left side Motor strength in the triceps muscle: Normal right side. Normal left side Deep tendon reflexes: Normal at the biceps. Normal at Brachioradialis. Normal at triceps Vertebral body tenderness to deep palpation over Cervical facet loading test: positive bilaterally Spurling test: positive bilaterally Neck distraction test: positive bilaterally Lui sign: positive bilaterally Lumbar spine Motor strength lower extremities ,thigh and legs 5/5 Right side , 5/5 Left side Deep tendon reflexes : Normal Knee Jerk. Normal Ankle Jerk Vertebral body tenderness over Baez Test positive Lumbar facet Loading Test: positive Right / positive Left L4-L5, L5-S1 L> R Range of motion of the lumbar spine Flexion 30 degrees, extension 10 degrees Straight Leg Raise test: Left/ Right positive at degrees Sai test: positive right / positive left. Severe tenderness over the Sacroiliac joint on the Right / Left sides Gaenslen test: positive bilaterally Seated flexion test: positive bilaterally. Sacral spine : Severe tenderness over the Sacroiliac joint: right side / left side Range of motion: Flexion of the lumbar spine <60 degrees Range of motion: Extension of the lumbar spine <20 degrees Gaenslen's Test positive L Sai test: positive right side / left side Thigh Thrust Test L positive Sacral Thrust Test Imaging: MRI noncontrast lumbar spine from 08/11/2024 reviewed Assessment/ Plan : L Sacroiliitis, L3-L4 PLIF Recommendation of L SI #1. Risks, benefits of procedure discussed and patient verbalized understanding. All questions answered. I have spent greater than 30 minutes on patient care today. Dr Jacobsen was available by phone for the evaluation of this patient. The time was used to review the medical records including relevant urine studies and Prescription history (MAPs), review of the available imaging, evaluation and examination of the patient, coordination of care with the medical staff and if applicable referring physicians, as well as creation of the medical record PQRS Narrative: Smoking Status Never smoker Hx Alcohol Use (MH) No Home Medications: Ambulatory Orders Cholestyramine (with Sugar) [Cholestyramine Packet] 4 gm PO QAM 10/21/19 Levothyroxine Sodium [Synthroid] 50 mcg PO QAM 10/21/19 Escitalopram [Lexapro] 10 mg PO QAM 08/21/23 Loperamide [Imodium] 2 mg PO PRN 08/26/23 Cyclobenzaprine [Flexeril] 10 mg PO TID PRN #40 tab 08/28/23 Gabapentin [Neurontin] 100 mg PO TID 3 Days #90 cap 08/28/23 HYDROcodone/APAP 7.5-325MG [[place] 7.5-325] 1 tab PO Q4-6H PRN #42 tab 08/28/23 Sennosides/Docusate Sodium [Senna Plus 8.6-50 mg Softgel] 1 each PO DAILY PRN #20 capsule 08/28/23 Sulfamethoxazole/Trimethoprim [Bactrim DS 800-160 mg] 1 each PO BID #10 tablet 08/28/23 Controlled Substance Measures - Controlled Substance Measures Is patient prescribed a controlled substance at discharge?: No
== END ==
LOC: PNWHC3 08:24
PROVIDERS: ATTEND Specialist
DX: M46.1 Sacroiliitis, not elsewhere classified (principal); M43.26 Fusion of spine, lumbar region; M54.50 Low back pain, unspecified; G89.29 Other chronic pain; Z88.1 Allergy status to other antibiotic agents
CPT/HCPCS: 99211

== ENCOUNTER 2024-09-23 05:55 | Day surgery (SDC) | payer MEDICAID ==
[2024-09-20 15:44] VITALS: BMI 41.5
[2024-09-23] MEDS ORDERED: LACTATED RINGERS 1,000 ML IV SCH (06:08)
[2024-09-23 06:19] VITALS: TEMP 97
[2024-09-23] MEDS ORDERED: methylPREDNISolone ACETATE 80 MG/ML 1 ML VIAL ONE (07:09)
[2024-09-23] MEDS ORDERED: IOPAMIDOL M200 10 ML VIAL ONE (07:09)
[2024-09-23] MEDS ORDERED: ROPIVACAINE 5 MG/ML 30 ML VIAL ONE (07:09)
--- NOTE | 2024-09-23 07:17 | P.PCN ---
Date of Procedure: 09/23/24 Procedure(s) Performed: Procedure= Left sacroiliac joints steroid injection under fluoroscopy guidance (fluoroscopy image stored on file in the radiology Department ) Preoperative diagnosis= 1-sacroiliitis Postoperative diagnosis=Same as preop Diagnosis . Complication = none Condition= stable Anesthesia= local anesthesia with ropivacaine 0.5% 2 ml only Indication for the procedure= patient complaining of low back pain , examination was positive for severe tenderness over the sacroiliac joints bilaterally and patient diagnosed with sacroiliitis, for this reason he/ she was good candidate for sacroiliac joint steroid injection. Description of the procedure= procedure risk and benefits discussed with the patient, including but not limited, risk of infection and bleeding, and ALLERGIC reaction to the medication and not complete pain relief and patient agreed with the preceding patient taken to the operating room, placed in prone position or standard monitors applied to the patient then after induction of anesthesia back prepped with chlorhexidine 3 times , Then the left sacroiliac joint steroid injection done under strict sterile technique local infiltration of the skin and subcu interstitial at the location of the left sacroiliac joint then a 22-gauge Quincke Needle advanced slowly under fluoroscopy time placed in the left sacroiliac joint, needle placement confirmed with AP and oblique and lateral view then after appropriate needle placement confirmed, with the AP and oblique and lateral then after negative aspiration Isovue 200 1 mL injected showed arthropathy of the left sacroiliac joint, and after negative aspiration 0.5% Ropivacaine 2 mL and 80 mg of Depo-Medrol injected in the left sacroiliac joint after negative aspiration patient tolerated the procedure well that any complications and she will follow up in clinic 3 weeks
[2024-09-23 07:40] VITALS: BP 123/84; PULSE 75; RESP 18
--- NOTE | 2024-09-23 09:04 | FL ---
EXAMINATION TYPE: FL guided pain mgmt statistic DATE OF EXAM: 09/23/2024 FLUOROSCOPY SI JOINT INJECTION 5.5 FL 0.09906 DAP 2 images are provided. [facility], Workstation: [id number], 09/23/2024 9:01 AM
== END 2024-09-23 07:44 | disposition home or self-care (01) ==
LOC: ORPAIN 05:55
PROVIDERS: ATTEND Specialist
DX: M46.1 Sacroiliitis, not elsewhere classified (principal); Z88.0 Allergy status to penicillin
CPT/HCPCS: 27096; J2795; Q9966; J1010

== ENCOUNTER → 2024-10-18 | Outpatient (CLI) | payer MEDICAID ==
[2024-10-18 08:35] VITALS: BP 139/85; PULSE 69; RESP 16; TEMP 97.1
--- NOTE | 2024-10-20 07:29 | P.PAINPG ---
PQRS Measure Charge Sheet Comment: HISTORY OF PRESENT ILLNESS: A 53 yr old female presents today w severe and chronic LBP since 2018 secondary to failed L3-L4 PLIF, L Sacroiliitis for evaluation s/p L SI #1. Pt states she experienced 50% pain relief x 3 wks s/p procedure. Pt states pain level is provoked at 4-6 /10 in intensity, constant, localized in the L lumbar spine, predominantly axial, sharp in character without shooting pain. Pain is provoked by standing/ walking for periods > 20 min. Pain is alleviated by PT x 8 wks which ended in 2023, physician guided home exercises 4-5 times weekly since Spr 2023, massage therapy semi monthly since 2022 which she is currently in, heat, ice, medications, use of a LSO during the day and remove at bedtime, repositioning and rest . Oswestry axial pain score at 25. Interventional procedures include L3-L4 PLIF (2023), L SI x1 Medications See list include Naproxen, Tyl REVIEW OF ORGAN SYSTEMS: CONSTITUTIONAL: No fevers or chills. No recent weight loss. NEUROLOGICAL: + numbness and tingling along the distal extremities. No seizure disorders or headaches. MUSCULOSKELETAL: + pain PSYCHIATRIC: Denies current depression or suicidal thoughts. Physical Examinations : Constitutional : Cooperative , not in acute distress . Neurologic : Cranial nerve II to XII intact. No focal neurological deficits. Psychiatric : alert & oriented x 3. Matching mood & appropriate affect. Judgment & insight intact. Musculoskeletal : Cervical Spine Motor strength in the deltoid and biceps: Normal right side. Normal Left side Motor strength biceps and the wrist extensors: Normal right side . Normal left side Motor strength in the triceps muscle: Normal right side. Normal left side Deep tendon reflexes: Normal at the biceps. Normal at Brachioradialis. Normal at triceps Vertebral body tenderness to deep palpation over Cervical facet loading test: positive bilaterally Spurling test: positive bilaterally Neck distraction test: positive bilaterally Lui sign: positive bilaterally Lumbar spine +Incisional scar Motor strength lower extremities ,thigh and legs 5/5 Right side , 5/5 Left side Deep tendon reflexes : Normal Knee Jerk. Normal Ankle Jerk Vertebral body tenderness over L4 Baez Test positive L L3-L4/ L4-L5 Lumbar facet Loading Test: positive Right / positive Left L4-L5, L5-S1 L> R Range of motion of the lumbar spine Flexion 30 degrees, extension 10 degrees Straight Leg Raise test: Left/ Right positive at degrees Sai test: positive right / positive left. Severe tenderness over the Sacroiliac joint on the Right / Left sides Gaenslen test: positive bilaterally Seated flexion test: positive bilaterally. Sacral spine : Severe tenderness over the Sacroiliac joint: right side / left side Range of motion: Flexion of the lumbar spine <60 degrees Range of motion: Extension of the lumbar spine <20 degrees Gaenslen's Test positive L Sai test: positive right side / left side Thigh Thrust Test L positive Sacral Thrust Test Imaging: MRI non contrast lumbar spine from 08/11/2024 reviewed Assessment/ Plan : L Sacroiliitis, L3-L4 PLIF Recommendation of L TFESI L3-L4/ L4-L5 #1. Risks, benefits of procedure discussed and patient verbalized understanding. Protocol for discontinuation/ continuation of medications estevan procedure discussed. All questions answered. I have spent greater than 30 minutes on patient care today. Dr Jacobsen was available by phone for the evaluation of this patient. The time was used to review the medical records including relevant urine studies and Prescription history (MAPs), review of the available imaging, evaluation and examination of the patient, coordination of care with the medical staff and if applicable referring physicians, as well as creation of the medical record - Pain Location Left Lower Back Non-Pharmacological Interventions: Chiropractic Treatment, Heat, Home Exercise, Ice, Inactivity, Massage, Physical Therapy, Position/Reposition, Relaxation Technique, Sitting, Stretching Pharmacological Interventions: Epidural, PRN Medication, Topical Medication PQRS Narrative: Smoking Status Never smoker Hx Alcohol Use (MH) No Home Medications: Ambulatory Orders Cholestyramine (with Sugar) [Cholestyramine Packet] 4 gm PO QAM 10/21/19 Levothyroxine Sodium [Synthroid] 50 mcg PO QAM 10/21/19 Escitalopram [Lexapro] 10 mg PO QAM 08/21/23 diazePAM [Valium] 10 mg PO DAILY 1 Days #1 tab 10/18/24 Controlled Substance Measures - Controlled Substance Measures Is patient prescribed a controlled substance at discharge?: Yes If prescribed controlled substance>3 days was MAPS reviewed?: Prescribed <3 Days
== END ==
LOC: PNWHC3 07:52
PROVIDERS: ATTEND Specialist
DX: M46.1 Sacroiliitis, not elsewhere classified (principal); M43.26 Fusion of spine, lumbar region; Z88.0 Allergy status to penicillin
CPT/HCPCS: 99211

== ENCOUNTER 2024-11-11 09:14 | Day surgery (SDC) | payer MEDICAID ==
[~2024-11-11 09:14] MED LIST changes: +LACTATED RINGERS 1,000 ML IV SCH; -LIDOCAINE 1% (10MG/ML) FOR IV START INTRADERMA PRN; -MIDAZOLAM 2 MG/2 ML VIAL IV PRN; -TRANEXAMIC 1,000 MG/100ML-NACL 1,000 MG in SALINE 1 100ML.BAG IVPB PRN
[2024-11-11 09:39] VITALS: TEMP 97.1
[2024-11-11] MEDS ORDERED: DEXAMETHASONE SOD PHOSPHATE 10 MG/ML 1 ML VIAL ONE (11:00)
[2024-11-11] MEDS ORDERED: IOPAMIDOL M300 15ML VIAL ONE (11:00)
[2024-11-11 11:24] VITALS: BP 117/84
--- NOTE | 2024-11-11 11:27 | P.PCN ---
Description of Procedure: PREOPERATIVE DIAGNOSIS: 1-Lumbar radiculopathy . 2-lumbar degenerative disc disease. 3-lumbar spondylosis with lumbar facet arthropathy without myelopathy POSTOPERATIVE DIAGNOSIS: 1-lumbar radiculopathy. 2-lumbar degenerative disc disease. 3-lumbar spondylosis with facet arthropathy without myelopathy PROCEDURE 1. Transforaminal epidural steroid injection under fluoroscopic guidance at LEFT L4-5 level. (Fluoroscopy images stored on file in the radiology Department ) 2. Lumbar epidurogram . ANESTHESIA: Local with 1% lidocaine 5 ml. subcutaneously. Continuous pulse ox, EKG, blood pressure and verbal communication was maintained with the patient. EBL: Minimal PROCEDURE INDICATION: The patient with low back pain and radiculopathy symptoms unresponsive to conservative treatment. The patient was seen and identified in the preoperative area. Risks, benefits, complications, and alternatives were discussed with the patient. The patient agreed to proceed with the procedure and signed the consent. IV was started, and vital signs were stable. PROCEDURE DESCRIPTION / TECHNIQUE: After getting consent, patient was taken to the OR and time out was completed. The patient was placed in the prone position on procedure table and a pillow was placed under the abdomen to reduce lumbar lordosis. The lumbosacral area was prepped and draped in the usual sterile fashion. Critical pause was taken. After injecting 5 mL of plain 1% lidocaine subcutaneously, under oblique view of the fluoroscope, a 22-gauge spinal needle was introduced under the tunnel view of the fluoroscope on the LEFT side and the needle was advanced so that the tip of the needle was at the posterior inferior quadrant of the intervertebral foramen at the lateral view of the fluoroscope and in the lateral third of the facet column in the AP view of the fluoroscope. Negative CSF, negative blood, negative paresthesia. After needle position confirmation by AP and cross table lateral view, 3 mL of Isovue-M 200 contrast was injected under continuous fluoroscope. No contrast was noted in the intrathecal or intravascular space. The epidurogram was noted. Again after repeated negative aspiration 2.5 mL solution was injected which consists 0.5 mL of normal saline mixed with 2 mL of 20 mg dexamethasone. Needle was removed . At the end of the procedure, skin was cleansed, and bandages were applied. Could not visualize left L3-4 space because of multiple metals. Decided to do only left L4-5 space. DISPOSITION / PLANS: No complication. The patient tolerated the procedure well. The patient was placed in a supine position and transferred to the recovery area in a stable condition for observation. There was no evidence of lower extremity motor or sensory deficit after the procedure. Patient was discharged from the recovery room after meeting discharge criteria. Home discharge instructions were given to the patient by the staff. The patient was reexamined prior to discharge.
--- NOTE | 2024-11-11 11:34 | FL ---
Left transforaminal inj 1.19min fluoro time .[id number] DAP [facility], , 11/11/2024 11:32 AM
[2024-11-11 11:45] VITALS: PULSE 74; RESP 16
== END 2024-11-11 11:57 ==
LOC: ORPAIN 09:14
PROVIDERS: ATTEND Pain Medicine Interventional Pain Medicine
DX: M47.26 Other spondylosis with radiculopathy, lumbar region (principal); M51.16 Intervertebral disc disorders with radiculopathy, lumbar region; Z88.0 Allergy status to penicillin
CPT/HCPCS: 64483; 64484; J1100; Q9967

== ENCOUNTER → 2024-12-02 | Outpatient (CLI) | payer MEDICAID ==
[2024-12-02 08:36] VITALS: BP 113/80; PULSE 91; RESP 18
--- NOTE | 2024-12-02 12:50 | P.PAINPG ---
PQRS Measure Charge Sheet Comment: HISTORY OF PRESENT ILLNESS: A 54 yr old female presents today w severe and chronic LBP since 2018 secondary to failed L3-L4 PLIF, L Sacroiliitis for evaluation s/p L TFESI L4-L5 #1. Pt states she experienced 0% pain relief x 3 wks s/p procedure. Pt states pain level is provoked at 4-6 /10 in intensity, constant, localized in the L lumbar spine, predominantly axial, sharp in character without shooting pain. Pain is provoked by standing/ walking for periods > 20 min. Pain is alleviated by PT x 8 wks which ended in 2023, physician guided home exercises 4-5 times weekly since 2023, massage therapy semi monthly since 2022 which she is currently in, heat, ice, medications, use of a LSO during the day and remove at bedtime, repositioning and rest . Oswestry axial pain score at 25. Interventional procedures include L3-L4 PLIF (2023), L SI x1, L TFESI L4-L5 x1 (12/03) Medications See list include Naproxen, Tyl REVIEW OF ORGAN SYSTEMS: CONSTITUTIONAL: No fevers or chills. No recent weight loss. NEUROLOGICAL: + numbness and tingling along the distal extremities. No seizure disorders or headaches. MUSCULOSKELETAL: + pain PSYCHIATRIC: Denies current depression or suicidal thoughts. Physical Examinations : Constitutional : Cooperative , not in acute distress . Neurologic : Cranial nerve II to XII intact. No focal neurological deficits. Psychiatric : alert & oriented x 3. Matching mood & appropriate affect. Judgment & insight intact. Musculoskeletal : Cervical Spine Motor strength in the deltoid and jacklyn ps: Normal right side. Normal Left side Motor strength biceps and the wrist extensors: Normal right side . Normal left side Motor strength in the triceps muscle: Normal right side. Normal left side Deep tendon reflexes: Normal at the biceps. Normal at Brachioradialis. Normal at triceps Vertebral body tenderness to deep palpation over Cervical facet loading test: positive bilaterally Spurling test: positive bilaterally Neck distraction test: positive bilaterally Lui sign: positive bilaterally Lumbar spine +Incisional scar Motor strength lower extremities ,thigh and legs 5/5 Right side , 5/5 Left side Deep tendon reflexes : Normal Knee Jerk. Normal Ankle Jerk Vertebral body tenderness over L4 Baez Test positive L L3-L4/ L4-L5 Lumbar facet Loading Test: positive Right / positive Left L4-L5, L5-S1 L> R Range of motion of the lumbar spine Flexion 30 degrees, extension 10 degrees Straight Leg Raise test: Left/ Right positive at degrees Sai test: positive right / positive left. Severe tenderness over the Sacroiliac joint on the Right / Left sides Gaenslen test: positive bilaterally Seated flexion test: positive bilaterally. Sacral spine : Severe tenderness over the Sacroiliac j oint: right side / left side Range of motion: Flexion of the lumbar spine <60 degrees Range of motion: Extension of the lumbar spine <20 degrees Gaenslen's Test positive L Sai test: positive right side / left side Thigh Thrust Test L positive Sacral Thrust Test Imaging: MRI non contrast lumbar spine from 08/11/2024 reviewed Assessment/ Plan : L Sacroiliitis, L3-L4 PLIF Recommendation of medication management. Celebrex 100mg #180 (90d). Use, side effects, adverse reactions, safe storage discussed. All questions answered. I have spent greater than 30 minutes on patient care today. Dr Jacobsen was available by phone for the evaluation of this patient. The time was used to review the medical records including relevant urine studies and Prescription history (MAPs), review of the available imaging, evaluation and examination of the patient, coordination of care with the medical staff and if applicable referring physicians, as well as creation of the medical record - Pain Location Lower Back Non-Pharmacological Interventions: Heat, Ice Pharmacological Interventions: Medication PQRS Narrative: Smoking Status Never smoker Hx Alcohol Use (MH) No Home Medications: Ambulatory Orders Cholestyramine (with Sugar) [Cholestyramine Packet] 4 gm PO QAM 10/21/19 Levothyroxine Sodium [Synthroid] 50 mcg PO QAM 10/21/19 Escitalopram [Lexapro] 10 mg PO QAM 08/21/23 diazePAM [Valium] 10 mg PO DAILY 1 Days #1 tab 10/18/24 Phentermine HCl [Adipex-P] 37.5 mg PO DAILY 11/10/24 Controlled Substance Measures - Controlled Substance Measures Is patient prescribed a controlled substance at discharge?: No
== END ==
LOC: PNWHC3 08:20
PROVIDERS: ATTEND Specialist
DX: M47.816 Spondylosis without myelopathy or radiculopathy, lumbar region (principal); M54.16 Radiculopathy, lumbar region; M46.1 Sacroiliitis, not elsewhere classified; Z98.890 Other specified postprocedural states; Z88.0 Allergy status to penicillin
CPT/HCPCS: 99212